=== PATIENT | male | born 1965 | race Caucasian/White ===

== ENCOUNTER 2022-08-06 15:47 | Emergency (ER) | payer BC, SELFPAY ==
--- NOTE | 2022-08-06 15:49 | ED.GENADULT ---
HPI - General Adult General Chief complaint: Allergic Reaction Stated complaint: Tongue Numbness,Bilateral Tingling Arms Time Seen by Provider: 08/06/22 15:49 Source: patient, RN notes reviewed and old records reviewed Mode of arrival: ambulatory Limitations: no limitations History of Present Illness HPI narrative: 57-year-old male presents to the [facility] with complaints of a black spot on his tongue after eating a pretzel. States that is tongue started tingling and so did it arms. Has full range of motion. No swelling noted. No treatment prior to arrival. Patient states it occurred about 30 minutes prior to arrival Onset (ago): minute(s) (30-60) Related Data Home Medications Medication Instructions Recorded Confirmed chlorthalidone 25 mg tablet 25 mg PO DAILY 08/06/22 08/06/22 potassium citrate 10 mEq (1,080 10 meq PO BID 08/06/22 08/06/22 mg) tablet,extended release rosuvastatin 40 mg tablet 40 mg PO DAILY 08/06/22 08/06/22 tamsulosin 0.4 mg capsule 0.4 mg PO DAILY 08/06/22 08/06/22 Allergies Allergy/AdvReac Type Severity Reaction Status Date / Time No Known Allergies Allergy Verified 08/06/22 16:00 Review of Systems Review of Systems: All systems reviewed & are unremarkable except as noted in HPI and below Constitutional: Constitutional: Reports no additional constitutional complaints Eyes: Eyes: Reports no additional eye complaints ENT: Reports as per HPI Cardiovascular: Cardiovascular: Reports no additional cardiovascular complaints, Denies chest pain and Denies dyspnea Respiratory: Respiratory: Reports no additional respiratory complaints, Denies chest congestion, Denies cough and Denies dyspnea Gastrointestinal: Gastrointestinal: Reports no additional gastrointestinal complaints, Denies abdominal pain, Denies nausea and Denies vomiting Musculoskeletal: Musculoskeletal: Reports no additional musculoskeletal complaints Integumentary/Breasts: Skin/Breast: Reports system reviewed and no additional complaints, except as docu Neurologic: Reports system reviewed and no additional complaints, except as documented Psychiatric: Psychiatric: Reports no additional psychiatric complaints Allergic/Immunologic: Allergic/Immunologic: Reports no additional allergic/immunologic complaints PMFSH Comments At the time of my signature, I reviewed and agree with the nursing past medical, surgical, social, and family history. There is no relevant family history pertinent to the patient complaint. Exam Const: General: cooperative, healthy appearing, comfortable, no acute distress, well developed, alert and well nourished Nutritional Appearance: well nourished Orientation/consciousness: patient oriented x3 Limitations: no limitations HENMT: Head: normal to inspection Ears: hearing grossly normal bilaterally and external ears normal Face/Nose/Sinus: Normal external nose present, Normal nares present, Normal nasal mucous membranes and turbinates present, normal facial exam and face symmetric Face and sinus: normal facial exam Mouth: Yes Normal oral and palatal mucosa present, Yes lip normal, Yes oropharynx normal, Yes moist mucous membranes, Yes lip abnormal (black FB ), No mouth trauma and No muffled voice Mouth/tongue images: 1. Small block foreign body imbedded in tongue. Removed with alligator forceps appeared to be an insect stinger Throat: posterior oropharynx normal, uvula midline and no uvular edema Eyes: General: appearance normal, both eyes and all related structures Alignment and Position: alignment normal Periorbital: periorbital findings normal Conjunctivae: conjunctivae normal Pupils: Equal, round and reactive pupils present EOM: EOMs intact bilaterally Neck: Neck: normal visual inspection, full ROM, no lymphadenopathy and no meningeal signs Chest: Chest palpation & inspection: normal inspection of the chest Resp: Effort & Inspection: normal respiratory effort and able to speak in compl
[2022-08-06 15:53] VITALS: BP 138/71; PULSE 92; RESP 18; TEMP 36.6; O2SAT 100
--- NOTE | 2022-08-06 16:06 | PC.NURSE ---
TRAVELING SALES REPRESENTATIVE WAS ABLE TO REMOVE THE SPOT ON THE TONGUE WITH ALLIGATOR FORCEPS, APPEARS TO BE SOME SORT OF AN INSECT STINGER.
== END 2022-08-06 16:10 | disposition home or self-care (01) ==
PROVIDERS: Emergency Provider Nurse Practitioner; PCP Internal Medicine
DX: T63.481A Toxic effect of venom of other arthropod, accidental (unintentional), initial encounter (principal); E78.00 Pure hypercholesterolemia, unspecified; N40.0 Benign prostatic hyperplasia without lower urinary tract symptoms
CPT/HCPCS: 99213; G0463

== ENCOUNTER 2024-09-01 10:46 | Outpatient (CLI) | payer BC, SELFPAY ==
--- NOTE | ~2024-09-01 | MR_ITS ---
MRI of the right shoulder Technique: Axial proton-density fat-sat images, coronal proton density fat-sat and T2 fat-sat images, and sagittal T1-weighted and T2 fat-sat images were acquired. Clinical History: Tendon strain Findings: There is moderate AC joint degenerative change, with bony productive change in both sides o f the joint. Cortical clavicular, coracoacromial, and coracohumeral ligaments are probably intact. Supraspinatus and infraspinatus tendons are intact, with mild to moderate tendinosis but no tear. Sub scapularis tendon intact with moderate tendinosis. Tendon of long head of the biceps is intact. No definite labral tear seen. Inferior glenohumeral ligament is intact. No effusion or degenerative change of the glenohumeral join t. There is mild fluid distention of the subacromial/subdeltoid bursa. No muscle atrophy or edema. Impression: Mild subacromial/subdeltoid bursitis. Rotator cuff tendinosis without partial or full-thickness tear. Moderate AC joint degenerative change. Reviewed, dictated and finalized at location . Impression: Mild subacromial/subdeltoid bursitis. Rotator cuff tendinosis without partial or full-thickness tear. Moderate AC joint degenerative change.
--- OUTSIDE RECORDS SUMMARY | 2024-09-01 10:52 | XMS_ITS | CONTINUITY OF CARE DOCUMENT ---
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 Name Role Phone Tiffanie MALONE, Hola Unavailable [phone] JONATHAN FAJARDO Unavailable JONATHAN FAJARDO Unavailable PROBLEMS Condition Status Date Provider Notes Syncope active Hola Moreno MD Hyperlipidemia active Hola Moreno MD Kidney stones active Hola Moreno MD CAD (coronary artery disease) active Hola Moreno MD ENCOUNTERS Date Type Provider Location Encounter Diag nosis - In-person encounter Office Visit Hola Moreno MD [facility] CAD (coronary artery disease) - In-person encounter Office Visit Hola Moreno MD [facility] - In-person encounter Office Visit Hola Moreno MD [facility] SyncopeHyperlipidemiaKidney stones VITAL SIGNS Date Observation Value Provider Body Mass Index (Ratio) 24.07 kg/m2 Nick Moreno MD blood pressure, diastolic 84 mm[Hg] Balbina Galo blood pressure, systolic 133 mm[Hg] Lori Galo oxygen saturation, oximetry 97 % Kenna Galo pulse rate 70 /min Kenna Galo respiratory rate E&M 12 /[facility] 163 [lb_av] [facility] height E&M 69 [in_i] [facility] blood pressure, cuff size regular Balbina trinh Hitchcock Body Mass Index (Ratio) 24.66 kg/m2 Nick Moreno MD blood pressure, diastolic 84 mm[Hg] [facility] blood pressure, systolic 129 mm[Hg] [facility] oxygen saturation, oximetry 97 % [facility] pulse rate 64 /min [facility] respiratory rate E&M 12 /min [facility] weight E&M 167 [lb_av] [facility] height E&M 69 [in_i] [facility] blood pressure, cuff size regular [facility] Body Mass Index (Ratio) 25.25 kg/m2 Nick Moreno MD blood pressure, diastolic 98 mm[Hg] Caitlyn kimberlyn [facility] blood pressure, systolic 140 mm[Hg] [facility] oxygen saturation, oximetry 98 % [facility] rate E&M 16 /min [facility] pulse rate 72 /min [facility] blood pressure, cuff size regular Vi kimberlyn [facility] weight E&M 171 [lb_av] [facility] height E&M 69 [in_i] [facility] ALLERGIES No Known Drug Allergies RESULTS Date Observation Value Provider Reference Range Interpretation Location 7 prothrombin time (patient) 10.7 s [facility] 9.1-12.0 7 international normalized ratio (INR) 1.0 [facility] 0.9-1.2 7 lipoprotein, beta, serum, point, quantitative, calculated 81 mg/dL [facility] 0-99 7 HDL cholesterol, serum 74 mg/dL [facility] >39 7 triglyceride, serum, random 71 mg/dL [facility] 0-149 7 cholesterol, serum 169 mg/dL [facility] [phone]/03/2 7 calcium, serum 10.3 mg/dL [facility] 8.6-10.2 High 7 carbon dioxide, venous blood 25 mmol/L [facility] 20-29 7 chloride, serum 105 mmol/L [facility] 96-106 7 potassium, serum 4.8 mmol/L [facility] 3.5-5.2 7 sodium, serum 144 mmol/L [facility] [phone]/03/2 7 urea nitrogen/creatinin e ratio, serum 10 [facility] 10-24 7 creatinine, serum 0.71 mg/dL [facility] 0.76-1.27 Low 7 urea nitrogen, blood 7 mg/dL [facility] 8-27 Low 7 blood glucose, random 96 mg/dL [facility] 70-99 6 basophil count, absolute 0.1 x10E3/uL [facility] 0.0-0.2 6 Eosinophil Absolute Count 0.1 X10E3/UL [facility] 0.0-0.4 6 monocyte count, blood, automated 0.4 X10E3/UL [facility] 0.1-0.9 6 lymphocyte count, blood, automated 1.6 X10E3/UL [facility] 0.7-3.1 6 Absolute Neutrophils 3.1 X10E3/UL [facility] 1.4-7.0 6 basophils as percent of blood leukocytes 1 % [facility] Not Estab. 6 eosinophils as percent of blood leukocytes 1 % [facility] Not Estab. 6 monocytes as percent of blood leukocytes 8 % [facility] Not Estab. 6 lymphocytes as percent of blood leukocytes 31 % [facility] Not Estab. 6 neutrophils as percent of blood leukocytes 59 % [facility] Not Estab. 6 platelet count 214 X10E3/UL [facility] [phone]/03/2 6 red blood cell distribution width 11.8 % [facility] 11.6-15.4 6 mean corpuscular hemoglobin concentration, RBC 32.5 G/DL [facility] 31.5-35.7 mean corpuscular hemoglobin, RBC 31.1 pg [facility] 26.6-33.0 mean corpuscular volume, RBC 96 fL [facility] 79-97 hematocrit, blood 46.5 % [facility] 37.5-51.0 hemoglobin, blood 15.1 g/dL [facility] 13.0-17.7 erythrocyte (RBC) count 4.86 X10E6/UL [facility] 4.14-5.80 leukocyte count, blood 5.2 X10E3/UL [facility] 3.4-10.8 HISTORY OF MEDICATION USE Medication Status Instructions Dates Provider Indications Com ments ezetimibe 10 mg tablet active Kenna Galo aspirin 81 mg tablet,delayed release (DR/EC) active Take 1 tablet by mouth once a day 4 Coreen Cordova [facility] rosuvastatin 40 mg tablet active Kuldeep Paniagua tamsulosin 0.4 mg capsule active Kuldeep Paniagua SOCIAL HISTORY Date Observation Value Provider personal history of marijuana use no Hola Moreno MD drug use no Hola Hunt alcohol use no Hola Hunt smoking status Never smoker Hola Moreno MD personal history of marijuana use no Coreen SABILLON drug use no Coreen DRISCOLLP alcohol use no Coreen DRISCOLLP smoking status Never smoker Coreen argueta [facility] Surgical History of - Tonsillectomy Surgical History of - Tonsillectomy Hola Moreno MD appendectomy, history of Appendectomy, Hx of Hola Moreno MD INSURANCE PROVIDERS Payer name Policy type / Coverage type [place] [employer] party ID [facility] [id number] ADVANCE DIRECTIVES Name Date DISCUSSED - NO DECISION MADE TREATMENT PLAN Date Name Performer Cardiology:08/15/24 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 Medical therapy. No recurrance of syncope or dizziness. 06/13/24 P atient had episode of syncope in March of last year and was hospitalized h ad recurrent episode of near syncope last week H ad echo that showed EF of 49% with inferior and lateral wall hypokinesis A bnormal nuclears stress test 1 0 beats NSVT on tele monitor W ill plan for LHC to r/o ischemia H is updated medication list for this problem includes: Aspirin 81 Mg Tablet,delayed Release (/ec) (Aspirin) ..... Take 1 tablet by mouth once a day Hola Moreno MD Cardiology Hola Moreno MD Cardiology: H is updated medication list for this problem includes: Rosuvastatin 40 Mg Tablet (Rosuvastatin) Hola Moreno MD Cardiology:Found by cath. Stable disease. Continue current meds and increase exercise. Hola Moreno MD Cardiology Coreen Coynemigl ia [facility] Cardiology: H is updated medication list for this problem includes: Rosuvastatin 40 Mg Tablet (Rosuvastatin) Coreen Coynemiglia [facility] Cardiology:Patient h ad episode of syncope in March of last year and was hospitalized h ad recurrent episode of near syncope last week H ad echo that showed EF of 49% with inferior and lateral wall hypokinesis A bnormal nuclears stress test 1 0 beats NSVT on tele monitor W ill plan for LHC to r/o ischemia H is updated medication list for this problem includes: Aspirin 81 Mg Tablet,delayed Release (/ec) (Aspirin) ..... Take 1 tablet by mouth once a day Coreen SABILLON Cardiology Hola Moreno MD Cardiology Hola Moreno MD Cardiology:30 day monitor Hola Moreno MD Date Name PROTHROMBIN TIME WIT H INR LIPID PANEL CBC (INCLUDES DIFF/P LT) BASIC METABOLIC PANE L W/EGFR Stress Exercise Card iolite Monitor - Telemetry (Mobile Cardiac)
--- OUTSIDE RECORDS SUMMARY | 2024-09-01 10:52 | XMS_ITS | Clinical Summary ---
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 Gender Identity Not on file Sexual Orientation Not on file Plan of Treatment Health Maintenance Due Date Last Done Comments Hepatitis C Virus (HCV) Screening 1965 TdaP Immunization 1964 Hepatitis B Immunization (1 of 3 - 19+ 3-dose series) 1983 Colonoscopy 2009 Colorectal Cancer Screening 2009 Cologuard 2014 Immunochemical Fecal Occult Blood 2014 Pneumococcal Immunization (5 0+ years) (1 of 1 - PCV) 2014 Zoster Immunization (1 of 2) 2014 PSA Discussion 2019 Influenza Immunization (#1) 12/12/202301/10, 01/30/2017 SARS-COV-2 Immunization ( season) 2023 Respiratory Syncytial Virus (RSV) Immunization (Adult) (1 - 1-dose 75+ series) 2039 Meningococcal Immunization (ACWY) Aged Out No longer eligible b ased on patient's age to complete this topic Pneumococcal Immunization Combined Aged Out No longer eligible b ased on patient's age to complete this topic Rotavirus Immunization Aged Out No lo nger eligible based on patient's age to complete this topic
--- OUTSIDE RECORDS SUMMARY | 2024-09-01 10:52 | XMS_ITS | Clinical Summary ---
Author Organization [facility] Address [facility] [place] [address] Care Team Providers Care Anglesmith Name Role Phone Xiomara Powell MD Primary Care Provider Terence Lagunas MD Unavailable [phone] Allergies No known active allergies Medications chlorthalidone (HYGROTON) 25 mg tabletIndications:Histo ry of kidney stones Take 1 tablet (25 mg total) by mouth daily Active multivitamin tablet 1 tablet daily 09/22/19 07 Active aspirin 81 mg enteric coated tablet Take 1 tablet (81 mg total) by mouth daily 04/28/19 17 Active DOCOSAHEXAENOIC ACID ORAL Take 1 capsule by mouth daily Active azelastine 205.5 mcg (0.15 %) spray,non-aerosolIndica tions:Chronic rhinitis Administer 0.3 mL (2 sprays total) into affected nostril(s) 2 (two) times a day Active niacin 500 mg tablet Take 1 tablet (500 mg total) by mouth daily 04/28/19 17 Active calcium polycarbophil (FIBER-CAPS, CA POLYCARBOPHIL, ORAL) Take 1 capsule by mouth daily Active glucosamine HCl 1,500 mg tablet Take 1 capsule by mouth 2 (two) times a day 04/28/19 17 Active ginkgo biloba leaf extract 30 mg capsule Take 3 capsules by mouth daily 04/28/19 17 Active potassium citrate ER (UROCIT-K) 10 mEq (1,080 mg) CR tabletIndications:Histo ry of kidney stones Take 1 tablet (10 mEq total) by mouth daily Active desonide (DESOWEN) 0.05 % lotionIndications:Sebor rheic dermatitis APPLY TO RASH AREA ON FACE TWICE A DAY NEEDED 06/25/19 21 Active tamsulosin (FLOMAX) 0.4 mg extended release capsuleIndications:Luther gn prostatic hyperplasia with nocturia Take 1 capsule (0.4 mg total) by mouth daily 12/03/19 24 Active omega-3 fatty acids-fish oil 300-1,000 mg capsule Take 2 capsules (2 g total) by mouth daily Active cholecalciferol 400 unit capsule Take 1 tablet/capsul e (400 Units total) by mouth daily Active collagen, hydrolysate, bovine, (collagen, hydr, bovine,, bulk,) 100 % powder 10 granules daily 10 grams Active UNABLE TO FIND Take 1 each by mouth daily Med Name: Total Beets Active rosuvastatin (CRESTOR) 40 mg tabletIndications:Pure hypercholesterolemia Take 1 tablet (40 mg total) by mouth daily 100 tablet 3 12/08/19 24 Active Active Problems Problem Noted Date Diagnosed Date Pure hypercholesterolemia 12/08/2023 Assessment & Plan (12/08/2023 5:39 PM CDT): Chronic. Tolerates rosuvastatin 40 mg daily. Has been off medication for about a week or 2. His last LDL was over 70 on the 40 mg dose. Given this he likely does need to stay on it. Medication refilled. Encouraged healthy lifestyle Chronic rhinitis 12/08/2023 Assessment & Plan (12/08/2023 5:39 PM CDT): Chronic. Astelin helps but has issues with dry nose and nosebleed. Discussed potential attempts to trial [id number] antihistamine. Also consider using saline nasal spray and sinus rinses like a Neti pot. See how that does. If struggles we can always put him back on nasal sprays with antihistamine and nasal steroids Benign prostatic hyperplasia with nocturia 12/07 Assessment & Plan (12/08/2023 5:39 PM CDT): Chronic. On Flomax with benefit. Continue. Sees urology Greater trochanteric pain sy ndrome of both lower extremities 12/08/2023 Acute pain of right knee 12/08/2023 Chondromalacia patellae of right knee 12/08/2023 Seborrheic dermatitis 12/08/2023 History of kidney stones 04/13/2008 Assessment & Plan (12/08/2023 5:38 PM CDT): Chronic. Follows with Urology. Reports chlorthalidone for the kidney stones and not for diagnosis hypertension. Continue your crit as well. Resolved Problems Problem Noted Date Diagnosed Date Resolved Date Cervical radiculopathy 10/09/202212/07 Essential hypertension 06/25/202212/07 Incisional hernia with obstruction 05/15/2020 12/08/2023 Mixed hyperlipidemia 04/28/2016 024 Epididymitis 07/09/2011 12/08/2023 Erectile dysfunction 03/26/2011 024 Abdominal hernia 01/23/2010 12/08/2023 Immunizations Immunization Administration Dates Next Due Influenza, Quadrivalent, Spl it, Intramuscular 01/19/2018,01/30/2017 Influenza, Quadrivalent, Spl it, Preservative Free, Intramuscular 01/17/2023,02/06/2022,01/31/2020 Influenza, Trivalent, IM (MDV) 02/06/2022 Pfizer SARS-CoV-2 Monovalent Vaccination (12+ Yrs) PURPLE 02/06/2022 ZOSTER Recombinant 09/18/2022,07/13/2022 Surgical History Surgery Date Site/Laterality Comments DC APPENDECTOMY Appendectomy - 03/2005 (Added by TW Conv) DC UNLISTED PROCEDURE ABDOME N PERITONEUM & OMENTUM Hernia Repair - 08/2007 & 03/2007 (Added by TW Conv). x 4 HERNIA REPAIR x 4 TONSILLECTOMY AND ADENOIDECTOMY URETERAL REIMPLANTION had ureteral reimplanted and made larger SKIN SURGERY scalp for cyndi adn then skin transplant to cover bald spot Medical History Medical History Date Comments Personal history of other me ntal and behavioral disorders History of depression - (Add ed by TW Conv) Induration penis plastica Peyron ie's disease - (Added by TW Conv) High cholesterol History of hype rcholesterolemia - (Added by TW Conv) Kidney stone Chronic rhinitis Seborrheic dermatitis Incisional hernia with obstruction 05/15/2020 Family History * Patient is adopted Medical History Relation Name Comments No Known Problems Brother No Known Problems Sister No Known Problems Son Relation Name Status Comments Brother Alive Father Maternal Grandfather Maternal Grandmother Mother Paternal Grandfather Paternal Grandmother Sister Alive Son Alive Social History Tobacco Use Types Packs/Day Years Used Date Smoking Tobacco: Never Smokeless Tobacco: Never Tobacco Cessation:Counseling Given: No AUDIT-C Answer Date Recorded Q1: How often do you have a drink containing alc ohol? Monthly or less 12/08/2023 Q2: How many drinks containi ng alcohol do you have on a typical day when you are drinking? 3 or 4 12/08/2023 Q3: How often do you have si x or more drinks on one occasion? 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 Gender Identity Not on file Sexual Orientation Not on file Obstetrics History Last Filed Vital Signs Vital Sign Reading Time Taken Comments Blood Pressure 109/75 12/08/2023 1:37 PM CDT Pulse 91 12/08/2023 1:37 PM CDT Temperature 36.6 C (97.8 F) 12/08/2023 1:37 PM CDT Respiratory Rate 16 12/08/2023 1:37 PM CDT Oxygen Saturation 98% 12/08/2023 1:37 PM CDT Inhaled Oxygen Concentration - - Weight 68.8 kg (151 lb 11.2 oz) 12/08/2023 1:37 PM CDT Height 174 cm (5' 8.5 ) 12/08/2023 1:37 PM CDT Body Mass Index 22.73 12/08/2023 1:37 PM CDT Plan of Treatment Health Maintenance Due Date Last Done Comments Hepatitis C Screening 1965 DTaP/Tdap/Td Vaccine (1 - Tdap) 1975 Hepatitis B Screening 1982 Covid-19 Vaccine ( season) 2023 02/06/2022, 02/06/2022, 07/15/2020, Additional history exists Regular Well Visit/Exam 18-64 04/21/2024 04/21/2023 Prostate Cancer Screening-PSA 06/26/2024 06/26/2022 Depression Screening 12/07/2024 12/08/2023, 12/08/19 24 Influenza Vaccine (Season Ended) 2024 01/17/2023, 02/06/2022, 02/06/2022, Additional history exists Colon Cancer Screening-Colonoscopy 12/08/2033 12/09/2023 Zoster Vaccine Completed 09/18/2022, 07/13/2022 Pneumococcal vaccine <65 Aged Out No longer eligible based on patient's age to complete this topic Procedures Procedure Name Priority Date/Time Associated Diagnosis Comments COLONOSCOPY Routine 12/09/2023 10:17 AM CDT from Last 3 Months or Most Recently Relevant to Health Maintenance Results * COLONOSCOPY (12/09/2023 10:17 AM CDT) Scribed Colonoscopy Abnormal us Historical Provider HEALTH MAINTENANCE Final Result from Last 3 Months or Most Recently Relevant to Health Maintenance Insurance [facility] Care Teams Anglesmith Relationship Specialty Start Date End Date Xiomara Powell MD PCP - General Family Medicine 12/08/23 Terence Lagunas MD [address] [facility] [place] [address] Consulting Physician Urology 12/08/23
--- OUTSIDE RECORDS SUMMARY | 2024-09-01 10:52 | XMS_ITS | Clinical Summary ---
Author Organization [email or web address] Address [address] [place] [address] Care Team Providers Care Support Representative Name Role Phone Markell Ibarra MD Primary Care Provider [phone] Source Comments [facility],non-owned Affiliates and Associated Physician Practices is amultiple site organization consisting of ambulatory clinics and hospital sitesin [place], [place], [place] and [place]. This disclosure is being madepursuant to the Care Everywhere program and may not contain all information available regarding this patient. Last updated 17.[facility] Allergies No known active allergies Medications * Be aware that medications may not be up to date on this document. Alwaysverify current medications with the patient. rosuvastatin (Crestor) 40 MG tablet Take 1 (one) tablet by mouth once daily Active tamsulosin (Flomax) 0.4 MG capsule Take 1 (one) capsule by mouth once daily At the same time every day after a meal. Active GINKGO BILOBA EXTRACT PO Take 120 mg by mouth once daily Active Multiple Vitamin (MULTIVITAMIN ADULT PO) Take 1 tablet by mouth once daily Active fish oil/omega-3 fatty acids (Promega;Cardi-O korey 3) 1000 MG capsule Take 2 (two) capsules by mouth once daily Active Glucosamine-Vit D-Hyaluron Acd (Libertad Glucosamine Plus Vit D3) 5203-1832-1.65 MG-UNIT-MG TABS Take 2 tablets by mouth once daily Active vitamin D3 (Cholecalciferol ) 10 MCG (400 UNIT) capsule Take 1 (one) capsule by mouth once daily Active niacin (Niacor) 500 MG tablet Take 1 (one) tablet by mouth once daily Active inulin 2 g chew Take 2 (two) tablets by mouth once daily Active Active Problems Problem Noted Date Diagnosed Date Abnormal echocardiogram 04/18/2024 Overview (04/18/2024): TTE 03/2024 obtained for syncope work up with WMA but no stigmata of CHF Atrial fibrillation 04/09/2024 History of nephrolithiasis 04/09/2024 Syncope and collapse 04/08/2024 Hypokalemia 04/08/2024 Fall, initial encounter 04/08/2024 Laceration of scalp without foreign body, initia l encounter 04/08/2024 Mixed hyperlipidemia 04/08/2024 Benign prostatic hyperplasia without lower urinary tract symptoms 04/08/2024 Immunizations Immunization Administration Dates Next Due TDAP (7yrs+) 04/08/2024 Social History Tobacco Use Types Packs/Day Years Used Date Smoking Tobacco: Never Smokeless Tobacco: Never Tobacco Cessation:Counseling Given: Not Answered Alcohol Use Standard Drinks/Week Comments Yes 0 (1 standard drink = 0.6 oz pur e alcohol) occasionally Sex and Gender Information Value Date Recorded Sex Assigned at Not on file Legal Sex Male 6:34 AM [facility] Gender Identity Not on file Sexual Orientation Not on file Last Filed Vital Signs Vital Sign Reading Time Taken Comments Blood Pressure 126/88 04/18/2024 10:40 AM [facility] Pulse 76 04/18/2024 10:40 AM [facility] Temperature 36.6 C (97.8 F) 04/18/2024 10:40 AM [facility] Respiratory Rate 18 04/18/2024 10:40 AM [facility] Oxygen Saturation 96% 04/18/2024 10:40 AM [facility] Inhaled Oxygen Concentration - - Weight 77 kg (169 lb 11.2 oz) 04/18/2024 10:40 A M [facility] Height 175.3 cm (5' 9 ) 04/18/2024 10:40 AM [facility] Body Mass Index 25.06 04/18/2024 10:40 AM [facility] Plan of Treatment Health Maintenance Due Date Last Done Comments COLOGUARD (AGES 45-75) - COLON CA SCREENING 1964 COLON MONITORING 1964 COLONOSCOPY - COLON CA SCREENING 1964 CT COLONOGRAPHY - COLON CA SCREENING 1964 Colorectal Cancer Screening 1964 FIT - COLON CA SCREENING 1964 FLEX SIG - COLON CA SCREENING 1964 HIV SCREENING 1979 HEPATITIS C SCREENING 05/09/1982 PNEUMOCOCCAL VACCINE 50+ (1 of 2 - PCV) 1983 ZOSTER VACCINE (1 of 2) 2014 DEPRESSION SCREENING 04/12/2024 Respiratory Syncytial Virus (RSV) Vaccine Pt: or over 60 yrs (1 - Risk 60-74 years 1-dose series) 2024 SCREENING FOR DIABETES 04/10/2027 , 04/09/2024, 04/08/2024 DTAP/TDAP/TD VACCINES (2 - Td or Tdap) 04/08/2034 04/08/2024 COVID-19 VACCINE Completed 01/02/2024, , 02/06/2022, Additional history exists INFLUENZA VACCINE Completed 01/02/2024, , 02/06/2022, Additional history exists HEPATITIS B VACCINE Aged Out No longe r eligible based on patient's age to complete this topic HIB VACCINE Aged Out No longer eligi ble based on patient's age to complete this topic HPV VACCINE Aged Out No longer eligi ble based on patient's age to complete this topic MENINGOCOCCAL (Group B) VACCINE SHARED DECISION-MAKING Aged Out No longer eligible based on patient's age to complete this topic MENINGOCOCCAL GROUPS A/C/Y/W VACCINE Aged Out No longer eligible based on patient's age to complete this topic Procedures Procedure Name Priority Date/Time Associated Diagnosis Comments BASIC METABOLIC PANEL (CALCIUM TOTAL) AM Draw 04/10/2024 2:54 AM [facility] Syncope and collapse Hypokalemia from Last 3 Months or Most Recently Relevant to Health Maintenance Results * (ABNORMAL) BASIC METABOLIC PANEL (CALCIUM TOTAL) (04/10/2024 2:54 AM [facility]) BUN 14 7 - 26 mg/dL 04/10/2024 4:44 AM [facility] Creatinine 0.67(L) 0.71 - 1.16 mg/dL 04/10/2024 4:44 AM [facility] Sodium 133(L) 136 - 145 mmol/L 04/10/2024 4:44 AM [facility] Potassium 3.9 3.5 - 4.5 mmol/L 04/10/2024 4:44 AM [facility] Chloride 101 98 - 107 mmol/L 04/10/2024 4:44 AM [facility] CO2 26 22 - 29 mmol/L 04/10/2024 4:44 AM [facility] Glucose 101(H) 70 - 99 mg/dL 04/10/2024 4:44 AM [facility] Calcium 9.4 8.4 - 10.2 mg/dL 04/10/2024 4:44 AM [facility] Anion Gap 6 6 - 16 04/10/2024 4:44 AM [facility] BUN/Creatinine Ratio 21 7 - 23 04/10/2024 4:44 AM [facility] Osmolality Calculated 277 275 - 295 mOsm/kg 04/10/2024 4:44 AM [facility] eGFR by CKD-EPI >90 >=90 mL/min/1.7 3 m2 04/10/2024 4:44 AM [facility] Blood BLOOD SPECIMEN / Unknown Lab Venipuncture / Unknown 04/10/2024 2:54 AM [facility] 04/10/2024 4:13 AM [facility] Anali Owens MD LAB - CHEMISTRY ORDERABLES nal Result [facility] [address] [place] [address], [facility] [phone] from Last 3 Months or Most Recently Relevant to Health Maintenance Insurance ANTH Advance Directives * Full Code (Latest Code Status on File) Date Activated Date Inactivated Comments 04/08/2024 3:06 PM 04/10/2024 7:14 PM Care Teams Support Representative Relationship Specialty Start Date End Date Markell Ibarra MD [address] [place] [address] PCP - General 09/07/08
--- OUTSIDE RECORDS SUMMARY | 2024-09-01 10:52 | XMS_ITS | Referral Summary ---
Author Organization [facility] Address [address] [address] [place] [address] Care Team Providers Care Traffic Signal Mechanic Name Role Phone Xiomara Powell MD Primary Care Provider Terence Lagunas MD Unavailable [phone] Allergies No known active allergies Medications [...] and nosebleed. Discussed potential attempts to trial [id number] antihistamine. Also consider using saline nasal spray [...] (12+ Yrs) PURPLE 02/06/2022 ZOSTER Recombinant 09/18/2022,07/13/2022 Social History Tobacco Use Types Packs/Day Years [...] on file Legal Sex Male 7:53 PM [employer] Gender Identity Not on file Sexual Orientation [...] 12/08/2023 1:37 PM CDT Plan of Treatment Not on file Procedures Procedure Name Priority Date/Time Associated Diagnosis Comments COLONOSCOPY Routine 12/09/2023 10:17 AM CDT from Last 3 Months or Most Recently Relevant to Health Maintenance Results * COLONOSCOPY (12/09/2023 10:17 AM CDT) Scribed Colonoscopy Abnormal Historical Provider HEALTH MAINTENANCE Final Result from Last 3 Months or Most Recently Relevant to Health Maintenance Insurance [facility] Care Teams Traffic Signal Mechanic Relationship Specialty Start Date End Date Xiomara Powell MD PCP - General Family Medicine 12/08/23 Terence Lagunas MD [address] [facility] [address] [place] [address] Consulting Physician Urology 12/08/23
--- OUTSIDE RECORDS SUMMARY | 2024-09-01 10:52 | XMS_ITS | Data Portability ---
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 At his last appointment we sent him to physical therapy in order meloxicam. He presents today stating that the shoulder feels much better. He has now finished with PT and still takes meloxicam p.r.n.. He works on the PT exercises at home. Physical exam: No pain with palpitation. Normal scapular movement. No pain with shoulder range of motion. Range of motion fully intact. Sensation intact throughout. We recommend that he continue doing the physical therapy exercises at home to keep the shoulder mobile. He can continue to take meloxicam as needed. We will put in a refill for him today as he is almost out. We can see him back as needed if the pain returns or new issues arise. He is in agreement with this plan. [email or web address] Not available 03/24/2023 09:18:21 04/21/2023 04/21/2023 Immunizations discussed Healthy lifestyle choices discussed Exercise discussed Blood work ordered Continue current therapy Follow-up 6 months [email or web address] Not available 04/21/2023 21:16:00 Plan of Treatment Reminders Order Date Submit Date Provider Last Modified By Organization Details Last Modified Time Details Appointments Follow Up 15 2024 08:00A Monique Moss MD Not available Not available Not available Lab PSA, serum or plasma [address] (Lab), [address] [place], [address], 05/01/2024 09:59:25 lipid panel, serum 2024 025 [facility] (Lab), [address] [place], [address], 05/12/2024 06:50:30 CMP, serum or plasma 2024 025 [facility] (Lab), [address] [place], [address], 05/12/2024 06:50:31 CK (creatine kinase), total, serum [address] (Lab), [address] [place], [address], 05/01/2024 09:59:25 CMP, serum or plasma 2023 024 [facility] Not available 05/17/2023 11:34:05 lipid panel, serum 2023 024 [facility] Not available 05/17/2023 11:34:04 CBC w/ auto diff 2023 024 [place] Not available 05/17/2023 11:34:05 Referral cardiolog ist referral - Please call patient to schedule an appointme nt. Thank you. 2024 025 [facility] Ref[facility], [address], [place], [address], 04/25/2024 14:34:42 Procedures None recorded. Surgeries None recorded. Imaging MRI, shoulder, w/o contrast - Please call patient to schedule. 2024 025 [facility] ([facility]), [address] [place], [address], 08/30/2024 10:30:38 Medication Orders ezetimibe 10 mg tablet 2024 025 [facility], [address] [place], [id number], 06/22/2024 09:54:41 Patient TargetsNo targets recorded. Patient InstructionsNo instructions recorded. 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 Thank you. Referring Physician: Lyndon Perez, Family Medicine, Encounter Date: 04/24/2024 Results Created Date Observation Date Name Description Value Unit Range Abnormal Flag Note LastModifiedBy Organization Detail LastModifiedTime 05/11/1905/12/2024 LIPID PANEL , STAND LADARIUS cholesterol, total 190 mg/dL <200 normal Not Available [address], [address], 05/12/2024 06:50:30 05/11/19 25 05/12/2024 LIPID PANEL , [place] HDL cholesterol 70 mg/dL > or = 40 normal Not Available [address], [address], 05/12/2024 06:50:30 05/11/19 25 05/12/2024 LIPID PANEL , ST[place] triglyceride s 85 mg/dL <150 normal Not Available [address], [address], 05/12/2024 06:50:30 05/11/1905/12/2024 LIPID PANEL , [place] LDL-choleste rol 102 mg/dL _(samantha c) high Refer ence range : <100 Odalys able range <100 mg/dL for prima ry preve ntion ; <70 mg/dL for patie nts with CHD or diabe tic patie nts with > or = 2 CHD risk facto rs. LDL-C is now calcu lated using the Vesna n-Hop kins fam givens, which is a valid ated novel metho anil mannte r accur acy than the Fried taina equat ion in the estim ation of LDL-C . Vesna n SS et al. JEWEL. 2013; 310(1 9): 2061- 2068 (http ://ed ucati on.Qu damionKristy tracyMixercast. Process and Plant Sales/f aq/FA Q164) Not Available [address], [address], 05/12/2024 06:50:30 05/11/1905/12/2024 LIPID PANEL , ST[place] L[place]AR[place] chol/HDLC ratio 2.7 (calc ) <5.0 normal Not Available [address], [address], 05/12/2024 06:50:30 05/11/1905/12/2024 LIPID PANEL , [place] non HDL cholesterol 120 mg/dL _(samantha c) <130 normal For patie nts with diabe yao plus 1 major ASCVD risk facto r, treat ing to a non-H DL-C goal of <100 mg/dL (LDL- C of <70 mg/dL ) is consi shadia franks n. Not Available [address] [address] [place], [address], 05/12/2024 06:50:30 05/11/1905/12/2024 COMPR EHENS JULY METAB OLIC PANEL glucose 89 mg/dL 65-99 normal Fasti ng refer ence inter mario Not Available [address] [address] [place], [address], 05/12/2024 06:50:31 05/11/1905/12/2024 COMPR EHENS JULY METAB OLIC PANEL urea nitrogen (BUN) 10 mg/dL 7-25 normal Not Available [address] [address] [place], [address], 05/12/2024 06:50:31 05/11/1905/12/2024 COMPR EHENS JULY METAB OLIC PANEL creatinine 0.74 mg/dL 0.70-1 .30 normal Not Available [address], [address], 05/12/2024 06:50:31 05/11/19 25 05/12/2024 COMPR EHENS JULY METAB OLIC PANEL eGFR 104 mL/mi n/1.7 3m2 > or = 60 normal Not Available [address], [address], 05/12/2024 06:50:31 05/11/1905/12/2024 COMPR EHENS JULY METAB OLIC PANEL BUN/creatini ne ratio SEE NOTE: (calc ) 6-22 Not Repor ayde: BUN and Creat inine are withi n refer ence range . Not Available [address], [address], 05/12/2024 06:50:31 05/11/19 25 05/12/2024 COMPR EHENS JULY METAB OLIC PANEL sodium 141 mmol/ L 135-14 6 normal Not Available [address], [address], 05/12/2024 06:50:31 05/11/19 25 05/12/2024 COMPR EHENS JULY METAB OLIC PANEL potassium 4.3 mmol/ L 3.5-5. 3 normal Not Available [address], [address], 05/12/2024 06:50:31 05/11/19 25 05/12/2024 COMPR EHENS JULY METAB OLIC PANEL chloride 106 mmol/ L 98-110 normal Not Available [address], [address], 05/12/2024 06:50:31 05/11/19 25 05/12/2024 COMPR EHENS JULY METAB OLIC PANEL carbon dioxide 29 mmol/ L 20-32 normal Not Available [address], [address], 05/12/2024 06:50:31 05/11/1905/12/2024 COMPR EHENS JULY METAB OLIC PANEL calcium 10.2 mg/dL 8.6-10 .3 normal Not Available [address], [address], 05/12/2024 06:50:31 05/11/19 25 05/12/2024 COMPR EHENS JULY METAB OLIC PANEL protein, total 6.9 g/dL 6.1-8. 1 normal Not Available [address], [address], 05/12/2024 06:50:31 05/11/19 25 05/12/2024 COMPR EHENS JULY METAB OLIC PANEL albumin 4.7 g/dL 3.6-5. 1 normal Not Available [address], [address], 05/12/2024 06:50:31 05/11/1905/12/2024 COMPR EHENS JULY METAB OLIC PANEL globulin 2.2 g/dL_ (calc ) 1.9-3. 7 normal Not Available [address], [address], 05/12/2024 06:50:31 05/11/19 25 05/12/2024 COMPR EHENS JULY METAB OLIC PANEL albumin/glob ulin ratio 2.1 (calc ) 1.0-2. 5 normal Not Available [address], [address], 05/12/2024 06:50:31 05/11/1905/12/2024 COMPR EHENS JULY METAB OLIC PANEL bilirubin, total 0.8 mg/dL 0.2-1. 2 normal Not Available [address], [address], 05/12/2024 06:50:31 05/11/19 25 05/12/2024 COMPR EHENS JULY METAB OLIC PANEL alkaline phosphatase 53 U/L 35-144 normal Not Available [facility] [address] [address] [place], [address], 05/12/2024 06:50:31 05/11/19 25 05/12/2024 COMPR EHENS JULY METAB OLIC PANEL AST 30 U/L 10-35 normal Not Available [address] [address] [place], [address], 05/12/2024 06:50:31 05/11/19 25 05/12/2024 COMPR EHENS JULY METAB OLIC PANEL ALT 39 U/L 9-46 normal Not Available [address], [address], 05/12/2024 06:50:31 05/11/19 25 05/12/2024 CREAT INE KINAS E, TOTAL creatine kinase, total 57 U/L 23-325 normal Not Available [address], [address], 05/12/2024 06:50:32 05/11/19 25 05/12/2024 PSA, TOTAL PSA, total 1.03 NG/mL < or = 4.00 normal The total PSA value from this assay syste m is stand ardiz ed again st the WHO stand ladarius. The test resul t will be appro ximat ryder 20% lower when jean red to the equim olar- stand ardiz ed total PSA (Dias man Coult er). Jean rison of seria l PSA resul ts shoul d be inter prete d with this fact in mind. This test was perfo rmed using the [employer] ns chemi lumin escen t metho d. Value s obtai christopher from diffe rent assay metho ds canno t be used inter shore eably . PSA level s, regar dless of value , shoul d not be inter prete d as absol alatna evide nce of the prese nce or absen ce of [facility] se. Not Available [employer] [facility] [address] [facility] [place], [address], 05/12/2024 06:50:33 Result Notes None recorded. Problems Name Problem SNOMED Code Status Onset Date Resolution Date Notes Provider Name and Address Organization Details Recorded Time Pain in lower limb 28829222 Active Not Available [facility] 3 07:19:20 Hyperchole sterolemia 78599318 Active Not Available [facility] 3 07:19:20 Anxiety state 972217126 Active Not Available [facility] 3 07:19:20 Pure hyperchole sterolemia 654040253 Active Not Available [facility] 3 07:19:20 Dizziness and giddiness 614413591 Active Not Available [facility] 3 07:19:20 Numbness of hand 834687043 Active Not Available [facility] 3 07:19:20 History of calculus of kidney 208613859 Active 2018 Not Available [facility] 3 07:19:20 Hyperlipid emia 37581846 Active 2021 Not Available [facility] 3 07:19:20 Hemorrhoid s 59447239 Active Not Available [facility] 3 07:19:20 Skin sensation disturbanc e 50028492 Active Not Available [facility] 3 07:19:20 Chronic rhinitis 24665805 Active Not Available [facility] 3 07:19:20 Urolithias is 70730783 Active 2019 Not Available [facility] 3 07:19:20 Essential hypertensi on 48293578 Active 2022 Not Available [facility] 3 07:19:20 Cervical radiculopa thy 46634279 Active 2022 Not Available [facility] 3 07:19:20 Pain in left arm 828133778 Active 2022 NATALIIA Feng null, [place] - [facility] [employer] [facility] 3 13:54:04 Paresthesi a of upper limb 71988323 Active 2022 NATALIIA Feng null, [facility] [employer] [facility] 3 13:56:54 Pain of left shoulder joint 8609261983033 9109 Active 2022 Lakia Franklin RN null, [facility] [employer] [facility] 3 11:52:04 Screening for malignant neoplasm of prostate Active 2024 JODIE Winchester [address], [address], [place], [address] , [facility] [employer] [facility] 5 10:13:16 Atrial fibrillati on 52539159 Active 2024 JODIE Winchester [address], [address], [place], [address] , [facility] [employer] [facility] 5 10:15:22 Adult health examinatio n Active 2024 JODIE Winchester [address], [address], [place], [address] , [facility] [employer] [facility] 5 10:22:35 Strain of tendon of right shoulder region Active 2024 JODIE Winchester [address], [address], [place], [address] , [facility] [employer] [facility] 5 10:36:45 Problem Notes None recorded. Procedures Surgical History Date Name Laterality Status Provider Name and Address Organization Details Recorded Time Appendectomy completed Yee Youngblood [facility] [employer] [facility] 02/09/2023 08:58:53 Hernia Repair completed Alena Mendosa RN [facility] [employer] [facility] 04/24/2024 10:05:17 Imaging Results None recorded. Procedure Notes None recorded. Medical Equipment None Reported. Allergies No known drug allergies Medications Name Sig Start Date Stop Date Status Note LastModified by Organization Details LastModified Time cyclobenz aprine 10 mg tablet active Not Available Not Available No t Available amoxicill in 500 mg capsule TAKE 1 CAPSULE BY MOUTH FOUR TIMES A DAY 10/07 completed Not Available Not Available Not Available fluconazo le 100 mg tablet 01/09 completed Not Available Not Available Not Available desonide 0.05 % topical cream APPLY A THIN LAYER TO THE AFFECTED AREA OF THE SKIN 2 TIMES A DAY active Not Available Not Available No t Available Ceftin 500 mg tablet Take 1 tablet every 12 hours by oral route for 7 days. 05/11 completed Not Available Not Available Not Available cetirizin e 10 mg tablet TAKE 1 TABLET BY MOUTH DAILY 04/30 completed Not Available Not Available Not Available ibuprofen 800 mg tablet 11/12 completed Not Available Not Available Not Available hydrocodo ne 5 mg-acetam inophen 325 mg tablet 11/12 completed Not Available Not Available Not Available meloxicam 15 mg tablet TAKE 1 TABLET BY MOUTH EVERY DAY 04/24 completed Not Available Not Available Not Available prednison e 20 mg tablet TAKE 2 TABLETS DAILY FOR 3 DAYS, THEN 1 TABLET DAILY FOR 3 DAYS. TAKE WITH FOOD 10/23 completed Not Available Not Available Not Available sulfaceta mide sodium-schuler lfur 10 %-5 % (w/w) topical cleanser 05/11 completed Not Available Not Available Not Available clobetaso l 0.05 % topical cream 03/08 completed Not Available Not Available Not Available Zithromax Z-Maninder 250 mg tablet Take 1 tablet by oral route as directed for 6 days. 03/06 completed Not Available Not Available Not Available chlorthal idone 25 mg tablet TAKE 1 TABLET BY MOUTH DAILY 04/24 completed syncope . low BP Not Available Not Available Not Available aspirin 81 mg tablet,de layed release TAKE 1 TABLET BY MOUTH ONCE A DAY active Not Available Not Available No t Available amoxicill in 500 mg tablet Take 1 tablet 3 times a day by oral route for 7 days. 03/06 completed Not Available Not Available Not Available methocarb erinn 750 mg tablet 04/28 completed Not Available Not Available Not Available cyanocoba kayce (vit B-12) 500 mcg tablet Take by oral route. 02/09 completed Not Available Not Available Not Available tamsulosi n 0.4 mg capsule TAKE ONE CAPSULE BY MOUTH DAILY active Not Available Not Available No t Available potassium citrate ER 10 mEq (1,080 mg) tablet,ex tended release TAKE 1 TABLET BY MOUTH DAILY 04/24 completed Not Available Not Available Not Available desonide 0.05 % lotion Apply a thin layer to the affected area of the skin 2 times a day 02/09 completed Not Available Not Available Not Available mupirocin 2 % topical ointment APPLY TO AFFECTED AREA 3 TIMES DAILY FOR 4 DAYS active Not Available Not Available No t Available Transderm -Scop 1 mg over 3 days transderm al patch 05/11 completed Not Available Not Available Not Available Anusol-HC 25 mg rectal supposito ry Insert 1 supposit ory twice a day by rectal route as directed for 10 days. 06/10 completed Not Available Not Available Not Available methylpre dnisolone 4 mg tablets in a dose pack TAKE 1 DOSE PACK BY MOUTH DIRECTED 02/09 completed Not Available Not Available Not Available ketoconaz ole 2 % topical cream 04/30 completed Not Available Not Available Not Available fluticaso ne propionat e 50 mcg/actua tion nasal spray,aleida pension 12/11 completed Not Available Not Available Not Available ipratropi um bromide 21 mcg (0.03 %) nasal spray 04/30 completed Not Available Not Available Not Available ezetimibe 10 mg tablet TAKE 1 TABLET BY MOUTH EVERY DAY. CONTINUE ROSUVAST ATIN active Not Available Not Available No t Available clobetaso l-emollie nt 0.05 % topical cream 01/09 completed Not Available Not Available Not Available rosuvasta tin 40 mg tablet TAKE 1 TABLET BY MOUTH DAILY active Not Available Not Available No t Available Cialis 5 mg tablet TAKE 1 TABLET BY MOUTH DAILY NEEDED 05/11 completed Not Available Not Available Not Available Cialis 20 mg tablet Take 1 tablet every day by oral route. 04/08 completed Not Available Not Available Not Available niacin 2015 active 500MG ONCE DAILY Not Available Not Available Not Available flaxseed oil 03/06 completed Not Available Not Available Not Available Glucosami ne 2015 active Not Available Not Available Not Avai lable ginkgo biloba 2015 active Not Available Not Available Not Avai lable fiber 2016 active CHEWABLE Not Available Not Available Not Avai lable Fish Oil 300 mg capsule Take by oral route. 03/08 completed Not Available Not Available Not Available azelastin e 205.5 mcg (0.15 %) nasal spray [place] 2 spray(s) every day by intranas al route. 04/08 completed Not Available Not Available Not Available Spectravi te Adult 2016 active Not Available Not Available Not Avai lable Vitals Date Recorded Body height Body mass index (BMI) Body weight Provider Name and Address Organization Details Last Updated DateTime 03/24/2023 175.26 cm 22 kg/m2 17938.26 g NATALIIA iLn [facility] [employer] [facility] 03/24/2023 08:55:55 Date Recorded Body height Body mass index (BMI) Body weight Body temperature Heart rate Systolic blood pressure Diastolic blood pressure Provider Name and Address Organization Details Last Updated DateTime 4 175.26 cm 23.8 kg/m2 12058.3 7 g 98.4 [degF] 62 /min 114 mm[Hg] 72 mm[Hg] Dulce Maria Stinson MA [facility] [employer] [facility] 4 15:40:32 Date Recorded Body height Body mass index (BMI) Body weight Body temperature Oxygen saturation Oxygen saturation in Arterial blood by Pulse oximetry Heart rate Systolic blood pressure Diastolic blood pressure Provider Name and Address Organization Details Last Updated DateTime 5 175.26 cm 24.8 kg/m2 80424.2 4 g 98.4 [degF] 98 % 98 % 79 /min 122 mm[Hg] 88 mm[Hg] Alena Mendosa RN [facility] [employer] [facility] 5 09:59:27 Date Recorded Body height Body mass index (BMI) Body weight Body temperature Oxygen saturation Oxygen saturation in Arterial blood by Pulse oximetry Heart rate Systolic blood pressure Diastolic blood pressure Provider Name and Address Organization Details Last Updated DateTime 5 175.26 cm 24.9 kg/m2 79540.6 7 g 97 [degF] 97 % 97 % 76 /min 120 mm[Hg] 80 mm[Hg] NATALIIA Lin [facility] [employer] [facility] 5 09:37:06 Date Recorded Body height Body mass index (BMI) Body weight Body temperature Heart rate Oxygen saturation Oxygen saturation in Arterial blood by Pulse oximetry Systolic blood pressure Diastolic blood pressure Provider Name and Address Organization Details Last Updated DateTime 5 175.26 cm 23.6 kg/m2 49725.7 8 g 97 [degF] 64 /min 98 % 98 % 128 mm[Hg] 74 mm[Hg] NATALIIA Warren [place] [facility] [place] [employer] [facility] 5 09:51:28 Social History Question Answer Notes LastModified by SOL ELIXIRS Details LastModified Time Tobacco Smoking Status Never Smoker Not Available [facility] 06/10/2022 14:44:39 Do You Have An Advance Directive? No [id number] Information not available 06/10/2022 What Is Your Level Of Caffeine Consumption? Moderate [id number] Information not available 06/10/2022 In The 14 Days Before Symptom Onset, Have You Had Close Contact With A Laboratory-confirm ed COVID-19 While That Case Was Ill? No [id number] Information not available 06/10/2022 In The 14 Days Before Symptom Onset, Have You Had Close Contact With A Person Who Is Under Investigation For COVID-19 While That Person Was Ill? No [id number] Information not available 06/10/2022 What Type Of Diet Are You Following? REGULAR [id number] Information not available 06/10/2022 Do You Have A Medical Power Of Diamond Sizer? No [id number] Information not available 06/10/2022 What Was The Date Of Your Most Recent Tobacco Screening? 04/21/2023 [email or web address] Information not available 04/21/2023 Have You Recently Traveled Abroad? No [id number] Information not available 06/10/2022 Sex: Unknown Functional Status Question Answer Note LastModified by SOL [employer] Details LastModified Time Do you use any illicit or recreational drugs? No [id number] Information not available 06/10/2022 What is your level of alcohol consumption? Occasional [id number] Information not available 06/10/2022 What is your exercise level? Moderate [id number] Information not available 06/10/2022 Mental Status None recorded. Family History Nothing Reported Notes:adopted Medical History Condition Response ARTHRITIS Y URINARY/BLADDER/KIDNEY PROBLEMS Y Immunizations Vaccine Type Date Status Note Provider Nam e and Address Organization Details Recorded Time Influenza, split virus, quadrivalent, preservative 8 completed Not Available [facility] 10/12/2022 07:19:20 Influenza, split virus, quadrivalent, preservative 7 completed Not Available [facility] 10/12/2022 07:19:20 Influenza, split virus, trivalent, preservative 2 completed Not Available [facility] 10/12/2022 07:19:20 COVID-19, mRNA, LNP-S, PF, 30 mcg/0.3 mL dose 2 completed Not Available [facility] 10/12/2022 07:19:20 Past Encounters Encounter ID Performer Location Encounter Start Date Encounter Closed Date Diagnosis/Indication Diagnosis SNOMED-CT Code Diagnosis ICD10 Code Diagnosis Note [id number] Varghese Ibarra MD [facility] Internal Med Ebony quintana [address] [place] [address] y , [place] [address] 04/08/2021 00:00:00 04/08/2021 22:58:31 [id number] Varghese Ibarra MD [facility] [address] [place] [address] [place] [address] 10/07/2021 00:00:00 10/07/2021 22:08:27 [id number] Varghese Ibarra MD [facility] [address] [place] [address] [place] [address] 04/28/2022 00:00:00 04/28/2022 22:21:47 [id number] Varghese Ibarra MD [facility] Internal Med [facility] [address] [place] [address] [facility] [address] [place] [address] 10/09/2022 14:10:30 10/09/2022 14:50:15 Cervical radiculopathy 16561801 M54.12 [id number] Varghese Ibarra MD [facility] Internal Med [address] [place], [facility] [address] [place] [address] 10/23/2022 13:07:36 10/23/2022 13:53:19 Renewal of prescription 699632813 Z76.0 Paresthesi a of upper limb 20757686 R20.2 [id number] Amandeep Rasmussen MD [facility] [place] [address] [place] [address] 02/09/2023 08:40:27 02/09/2023 09:29:44 Pain of left shoulder joint 8511701533 4807376 M25.697 [id number] Amandeep Rasmussen MD [facility] [place] [address] [place] [address] 03/24/2023 08:53:48 03/24/2023 09:07:00 Pain of left shoulder joint 0661153163 [id number] M25.729 [id number] Varghese Ibarra MD [facility] Internal Med [address] [facility] [place] [address] 04/21/2023 15:09:05 04/21/2023 16:34:42 Essential hypertension 68318416 I10 [facility] th examination 903312365 Z00.00 Hyperlipidemia 42928793 E78.5 [id number] Daron Moss MD [address] [id number] 04/24/2024 09:42:40 04/24/2024 10:24:21 Pain of left shoulder joint [id number] M25.512 Screening for malignant neoplasm of prostate [id number] Z12.5 Pure hypercholesterolemia 607742287 E78.00 Atrial fibrillation 4943 6004 I48.91 [facility] examination [id number] Z00.00 [id number] Daron Moss MD [address] [address] 06/22/2024 08:55:34 06/22/2024 11:18:35 Hyperlipidemia 73176563 E78.5 Atrial fibrillation 4943 6004 I48.91 Cervical radiculopathy 87056319 M54.12 Essential hypertension 53969241 I10 [id number] Daron Moss MD [address] [place] [address] 08/17/2024 09:41:38 08/17/2024 10:51:01 Strain of tendon of right shoulder region [id number] 7102 S46.911A Health Concerns Section Related Observation LastModified by Organization Detai ls LastModified Time None Recorded Concern Status LastModified by Organization Details LastModified Time None Recorded Advance Directives Directive N: Payers Encounter Date Sequence Insurance Name Policy Number Policy Madsen Covered Member ID Madsen Member ID Guarantor Name 03/24/2023 1 [place] [id number] Jeff W Nelly [id number] Jeff W Nelly 04/21/2023 1 [place] [id number] Jeff W Nelly [id number] Jeff W Nelly 04/24/2024 1 [id number] Jeff W Nelly [id number] Jeff W Nelly 06/22/2024 1 [id number] Jeff W Nelly [id number] Jeff W Nelly 08/17/2024 1 [place] [id number] Jeff W Nelly [id number] Jeff W Nelly Notes Date Note Type Note Provider Name and Address Organization Details Recorded Time 04/21/2023 text/html Wellness visit paresthesias of the upper extremity maybe a little bit betterfacial dermatitis responsive to the desonide doing better Varghese Ibarra MD [address], [employer] [place], [address], [place] 04/21/2023 21:16:53 04/24/2024 text/html Dr. Ibarra no elif lisa here . syncope , hosp stopped chlorthalidone . Had a colonoscopy 5 to 6 years ago JODIE Winchester [address], [address], [place], [address], [place] 05/01/2024 12:46:33 06/22/2024 text/html heart doc did a stress test , needs a cath JODIE Winchester [address], [facility] [address], [place], [address], [employer] [facility] [place] [facility] 07/01/2024 11:08:52 08/17/2024 text/html right shoulder strain ; physical therapy has not helped . JODIE Winchester [address], [facility] [address], [place], [address], [employer] [facility] [employer] 08/30/2024 10:13:55
== END 2024-09-01 10:47 | disposition home or self-care (01) ==
PROVIDERS: PCP Internal Medicine; Visit Provider Physician Assistant
DX: S46.911A Strain of unspecified muscle, fascia and tendon at shoulder and upper arm level, right arm, initial encounter (principal); X58.XXXA Exposure to other specified factors, initial encounter; M19.011 Primary osteoarthritis, right shoulder
CPT/HCPCS: 73221

== ENCOUNTER 2024-09-12 16:24 | Outpatient (CLI) | payer BC, SELFPAY ==
--- NOTE | ~2024-09-12 | XR_ITS ---
Right Shoulder Technique: AP and axillary views were obtained. Clinical History: Tendon strain Findings: No fracture or dislocation is seen. Osseous alignment is anatomic. The glenohumeral and acr omioclavicular joint spaces are preserved. Soft tissues are unremarkable. Impression: Unremarkable right shoulder radiographs. Reviewed, dictated and finalized at [facility]. Impression: Unremarkable right shoulder radiographs.
--- OUTSIDE RECORDS SUMMARY | 2024-09-12 16:30 | XMS_ITS | Continuity of Care Document ---
Author Organization [facility] Address [address] [place] [address] [address] [place] [address] Phone Care Team Providers Care Inseminator Name Role Phone Petra Ruiz Unavailable Unavailable Advance Directives Directive Yes / No Effective Date File Name No Information Encounters Encounter Description Practice Location Reason(s) For Visit Diagnoses Date Provider Providers Copied on Encounter [facility], [address], [place], [place], [id number], [place] tel:[phone] [facility] No Information [address] , [address], [place], [address], [place]. tel:[phone] Family History Family Member Type Diagnosis Age At Onset No Information Payers Payer name Insurance type Covered green party ID Authoriza tion(s) [place] [place] [id number] Social History Type Description Quantity Date Captured Comments Sex Male Smoking Status No Information Chief Complaint And Reason For Visit No Information Reason For Referral Reason For Referral No Information History Of Present Illness Encounter Date Complaint History Of Prese nt Illness No Information Functional Status Date Functional Assessmen t No Information Instructions Date Instruction Additional Infor mation No Information Assessments Type Assessment Date No Information Patient Care Teams Name Effective Dates (start - stop) Status Members No Information
--- OUTSIDE RECORDS SUMMARY | 2024-09-12 16:30 | XMS_ITS | Continuity of Care Document ---
Author Organization [facility] Address [address] [place] [address] Phone Care Team Providers Care Web Weaver Name Role Phone Dru Fermin MD Unavailable Unavailable Allergies, Adverse Reactions, Alerts Substance Reaction Status Criticality No Known Allergies Active No Inform ation Medications Medication Instructions Dosage Effective Dates (start - stop) Status Comments Urocit-K 10 10 mEq (1,080 mg) tablet,extended release take 1 tablet by oral route 2 times every day 10 MEQ - Active chlorthalidone 25 mg tablet take 1 tablet by oral route every day 25 MG - Active Flomax 0.4 mg capsule take 1 capsule by oral route every day 1/2 hour following the same meal each day 0.4 MG - Active Pap 30mg / Phentol 1mg / PGE 10mcg Intracavernosal use as directed PRN no more than 1 time per day and 3 times per week - Active CONTACT#[id number] [phone] Please dispense 5mL vial, Dr. Fermin will teach patient how to inject in the office , dispense needles and syringes. PATIENT NEEDS TO CALL TO MAKE A MORNING APPOINTMENT ONCE MEDICATION HAS BEEN RECIEVED !! . thanks REG Viagra 100 mg tablet take 1 tablet by oral route every day as needed approximately 1 hour before sexual activity 100 MG - Active rosuvastatin 40 mg tablet take 1 tablet by oral route every day 40 MG - Active Aspir-81 81 mg tablet,delayed release take 1 tablet by oral route every day - Active Vitamin C 500 mg tablet - Active multivitamin tablet - Active Glucosamine Daily Complex 1,500 mg-400 unit-100 mg tablet - Active ginkgo biloba 120 mg tablet - Active flaxseed oil 1,300 mg-omega 3,6,9 845 mg-117 mg-117 mg capsule - Active fiber 2 gram chewable tablet - Active fish oil-dha-epa 1,200 mg-144 mg-216 mg capsule - Active Cialis 20 mg tablet take 1 tablet by oral route every day 20 MG - Active naproxen sodium 220 mg capsule - Active niacin 500 mg tablet take 1 tablet by oral route 3 times every day 500 MG - Active Problems Condition Type Effective Dates (start - stop) Clini samantha Status Comments No Known Problems Procedures Procedure Date OFFICE/OUTPATIENT VISIT, EST ROUTINE VENIPUNCTURE BASIC METABOLIC PANEL Prostate Specific Antigen, Total 2020 PENILE INJECTION UA, Clinitek W/O Micro OFFICE/OUTPATIENT VISIT, EST UA, Clinitek W/O Micro OFFICE/OUTPATIENT VISIT, EST ROUTINE VENIPUNCTURE Prostate Specific Antigen, Total 2020 BASIC METABOLIC PANEL OFFICE/OUTPATIENT VISIT, EST UA, Clinitek W/O Micro ROUTINE VENIPUNCTURE ASSAY OF TOTAL TESTOSTERONE OFFICE/OUTPATIENT VISIT, EST OFFICE/OUTPATIENT VISIT, EST UA, Clinitek W/O Micro BASIC METABOLIC PANEL Prostate Specific Antigen, Total 2018 ROUTINE VENIPUNCTURE Sildenafil 20 MG, 90 Count Bottle ASSAY OF TOTAL TESTOSTERONE ROUTINE VENIPUNCTURE OFFICE/OUTPATIENT VISIT, EST UA, Clinitek W/O Micro Sildenafil 20 Mg, Each OFFICE/OUTPATIENT VISIT, EST UA, Clinitek W/O Micro BASIC METABOLIC PANEL Prostate Specific Antigen, Total 2016 ROUTINE VENIPUNCTURE OFFICE/OUTPATIENT VISIT, [facility] UANiya W/O Micro Advance Directives Directive Yes / No Effective Date File Name No Information Encounters Encounter Description Practice Location Reason(s) For Visit Diagnoses Date Provider Providers Copied on Encounter [facility], [address] [place] [address], [id number], tel:[phone] [facility] DCPM No Information 2 Jeny Gonsales. [address] [place], [place], [id number] , [place]. tel: [phone] [facility], [address] [place] [address], [id number], tel:[phone] [facility] No Information 2 Jeny Gonsales. [address], [place], [id number] , [place]. tel: [phone] [facility], [address] [place] [address], [id number], [place] tel:[phone] YANIV [place] No Information 1 Jeny Gonsales. [address], [place], [id number] , [place]. tel: [phone] OFFICE/OUTPA TIENT VISIT, EST [facility], [address] [place] [address], [id number], [place] tel:[phone] YANIV Prajapati Office Visit (chief complaint) Calculus of kidneyEncount er for screening for cancer of prostateMale erectile dysfunction, unspecifiedBP H w/ lower urinary tract symptom 1 Jeny Gonsales. [address], [place], [id number] , [place]. tel: [phone] Referring Provider: Dru Aragon, [address] [place], [address]. tel: [phone] [facility], [address] [place] [address], [id number], tel:[phone] YANIV [place] Office Visit (chief complaint) Male erectile dysfunction, unspecified 1 Jeny Gonsales. [address], [place], [id number] , [place]. tel: [phone] Referring Provider: Dru Aragon, [address] [place], [address]. tel: [phone] OFFICE/OUTPA TIENT VISIT, [facility], [address] [place] [address], [id number], tel:[phone] YANIV Prajapati Office Visit (chief complaint) Calculus of kidneyEncount er for screening for cancer of prostateMale erectile dysfunction, unspecified 1 Jeny Gonsales. [address], [place], [id number] , [place]. tel: [phone] Referring Provider: None None. [facility], [address] [place] [address], [id number], [place] tel:[phone] YANIV Alo No Information 1 Jeny Gonsales. [address], [place], [id number] , [place]. tel: [phone] OFFICE/OUTPA TIENT VISIT, EST [facility], [address] [place] [address], [id number], [place] tel:[phone] YANIV Prajapati Office Visit (chief complaint) Encounter for screening for cancer of prostateCalcu eliceo of kidneyMale erectile dysfunction, unspecified 1 Jeny Gonsales. [address], [place], [id number] , [place]. tel: [phone] Referring Provider: None None. OFFICE/OUTPA TIENT VISIT, EST [facility], [address], [id number], [place] tel:[phone] YANIV [place] Office Visit (chief complaint) Male erectile dysfunction, unspecifiedCa lculus of kidney Fe- 0 Jeny Gonsales. [address], [place], [id number] , [place]. tel: [phone] Referring Provider: None None. [facility], [facility] [address], [id number], [place] tel:[phone] YANIV [place] Male erectile dysfunction, unspecified 9 Jeny Gonsales. [address], [place], [id number] , [place]. tel: [phone] Referring Provider: None None. OFFICE/OUTPA TIENT VISIT, EST [facility], [facility] [address], [id number], [place] tel:[phone] YANIV Cohen[place] Office Visit (chief complaint) Male erectile dysfunction, unspecified 9 Jeny Gonsales. [address], [place], [id number] , [place]. tel: [phone] Referring Provider: Markell Ibarra MD, [address] [facility] [address], [place], [address]. tel:[phone] OFFICE/OUTPA TIENT VISIT, EST [facility], [address] [place] [address], [id number], [place] tel:[phone] YANIV [place] Office Visit (chief complaint) Calculus of kidneyMale erectile dysfunction, unspecifiedEn counter for screening for cancer of prostate 9 Jeny Gonsales. [address], [place], [id number] , [place]. tel: [phone] Referring Provider: None None. [facility], [address], [id number], [place] tel:[phone] [facility] No Information 8 Jeny Gonsales. [address] [place], [place], [id number] , . tel: [phone] Referring Provider: Dru Aragon, [address] [place], [address]. tel: [phone] [facility], [address] [place] [address], [id number], [place] tel:[phone] [facility]3] No Information 8 Jeny Gonsales. [address] [place], [place], [id number] , [place]. tel: [phone] Referring Provider: None None. OFFICE/OUTPA TIENT VISIT, EST [facility], [address] [place] [address], [id number], tel:[phone] YANIV Cohen[place] Office Visit (chief complaint) Calculus of kidneyMale erectile dysfunction, unspecified 8 Jeny Gonsales. [address], [place], [id number] , [place]. tel: [phone] Referring Provider: Markell Ibarra MD, [address] [facility] [address], [place], [address]. tel:[phone] [facility], [address] [place] [address], [id number], [place] tel:[phone] [facility] No Information 8 Jeny Gonsales. [address] [place], [place], [id number] , [place]. tel: [phone] Referring Provider: Dru Aragon, [address] [place], [address]. tel: [phone] OFFICE/OUTPA TIENT VISIT, EST [facility], [address] [facility] [address], [place], [id number], [place] tel:[phone] YANIV Manjarrez Office Visit (chief complaint) Calculus of kidneyMale erectile dysfunction, unspecified 7 Jeny Gonsales. [address] [place], [place], [id number] , [place]. tel: [phone] Referring Provider: Markell Ibarra MD, [address] [facility] [address], [place], [address]. tel:[phone] [facility], [address], [id number], [place] tel:[phone] YANIV Prajapati No Information 7 Jeny Gonsales. [address] [place], [place], [id number] , [place]. tel: [phone] Referring Provider: None None. OFFICE/OUTPA TIENT VISIT, NEW [facility], [address], [id number], [place] tel:[phone] YANIV Manzano Office Visit (chief complaint) Calculus of kidneyMale erectile dysfunction, unspecified 7 Jeny Gonsales. [address], [place], [id number] , [place]. tel: [phone] Referring Provider: None None. Family History Family Member Type Diagnosis Age At Onset Mother Problem (finding) High cholesterol Sister Problem (finding) High cholesterol Payers Payer name Insurance type Covered green party ID Authoriza tion(s) [employer] [place] PPO BL [id number] Social History Type Description Quantity Date Captured Comments Alcohol Use Details Unknown Caffeine Use Details Unknown Tobacco Use Status No Information Smoking Status No Information Sex Male Chief Complaint And Reason For Visit No Information Reason For Referral Reason For Referral No Information Plan Of Treatment Date Type Action Status Patient Education Prostate-Speci fic Antigen (PSA) Test:~ completed Future Order: Radiology Order Ab quiroz Single View - KUB ([id number]), Ordered on: Ordered Future Order: Radiology Order Ab quiroz Single View - KUB ([id number]), Collected on: Ordered History Of Present Illness Encounter Date Complaint History Of Prese nt Illness Comments: 52 y/o M here for evaluation.He has history of kidney stones, and he has been on urocitk, and HCTZ for ca ox stones.He states he has been on theses medications for > 10 years.He has prior treatment of kidney stones including SWL x 2 and URS x 1. He has had no intervenitons in > 5-6 yeaers.He has been seen previously in 2013 in [facility], with most recent KUB at that time showing no stones.He is on chlorthalidone at 25 mg qd and UroCitK bidHe has history of ED, and takes cialis 20 mg, which works wellRepeat litholink shows good ssCaOx, only mildly elevation of oxalate.f/u on 03/01/2019. He is concerned about not getting good response to cialis 20 mg anymore.f/u on 06/05/2019 AM T was normal x 2. Viagra is working well.f/u on 05/01/2020 No recent stone episodes.fu on 01/10/2021 he is here to discuss EDfu on 01/29/2021 f/u here for trimixf/u on 03/25/2021 Office Visit Comments: 52 y/ o M here for evaluation.He has history of kidney stones, and he has been on urocitk, and HCTZ for ca ox stones.He states he has been on theses medications for > 10 years.He has prior treatment of kidney stones including SWL x 2 and URS x 1. He has had no intervenitons in > 5-6 yeaers.He has been seen previously in 2013 in [facility], with most recent KUB at that time showing no stones.He is on chlorthalidone at 25 mg qd and UroCitK bidHe has history of ED, and takes cialis 20 mg, which works wellRepeat litholink shows good ssCaOx, only mildly elevation of oxalate.f/u on 03/01/2019. He is concerned about not getting good response to cialis 20 mg anymore.f/u on 06/05/2019 AM T was normal x 2. Viagra is working well.f/u on 05/01/2020 No recent stone episodes.fu on 01/10/2021 he is here to discuss EDfu on 01/29/2021 f/u here for trimix Office Visit Office Visit Comments: 52 y/o M here for evaluation.He has history of kidney stones, and he has been on urocitk, and HCTZ for ca ox stones.He states he has been on theses medications for > 10 years.He has prior treatment of kidney stones including SWL x 2 and URS x 1. He has had no intervenitons in > 5-6 yeaers.He has been seen previously in 2013 in [facility], with most recent KUB at that time showing no stones.He is on chlorthalidone at 25 mg qd and UroCitK bidHe has history of ED, and takes cialis 20 mg, which works wellRepeat litholink shows good ssCaOx, only mildly elevation of oxalate.f/u on 03/01/2019. He is concerned about not getting good response to cialis 20 mg anymore.f/u on 06/05/2019 AM T was normal x 2. Viagra is working well.f/u on 05/01/2020 No recent stone episodes.fu on 30/04/2020 he is here to discuss ED Office Visit (comments) 52 y/o M here for evaluation.He has history of kidney stones, and he has been on urocitk, and HCTZ for ca ox stones.He states he has been on theses medications for > 10 years.He has prior treatment of kidney stones including SWL x 2 and URS x 1. He has had no intervenitons in > 5-6 yeaers.He has been seen previously in 2013 in [facility], with most recent KUB at that time showing no stones.He is on chlorthalidone at 25 mg qd and UroCitK bidHe has history of ED, and takes cialis 20 mg, which works wellRepeat litholink shows good ssCaOx, only mildly elevation of oxalate.f/u on 03/01/2019. He is concerned about not getting good response to cialis 20 mg anymore.f/u on 06/05/2019 AM T was normal x 2. Viagra is working well.f/u on 05/01/2020 No recent stone episodes. Office Visit Office Visit (comments) 52 y/o M here for evaluation.He has history of kidney stones, and he has been on urocitk, and HCTZ for ca ox stones.He states he has been on theses medications for > 10 years.He has prior treatment of kidney stones including SWL x 2 and URS x 1. He has had no intervenitons in > 5-6 yeaers.He has been seen previously in 2013 in [facility], with most recent KUB at that time showing no stones.He is on chlorthalidone at 25 mg qd and UroCitK bidHe has history of ED, and takes cialis 20 mg, which works wellRepeat litholink shows good ssCaOx, only mildly elevation of oxalate.f/u on 03/01/2019. He is concerned about not getting good response to cialis 20 mg anymore.f/u on 06/05/2019 AM T was normal x 2. Viagra is working well. Office Visit Office Visit Office Visit (comments) 52 y/o M here for evaluation.He has history of kidney stones, and he has been on urocitk, and HCTZ for ca ox stones.He states he has been on theses medications for > 10 years.He has prior treatment of kidney stones including SWL x 2 and URS x 1. He has had no intervenitons in > 5-6 yeaers.He has been seen previously in 2013 in [facility], with most recent KUB at that time showing no stones.He is on chlorthalidone at 25 mg qd and UroCitK bidHe has history of ED, and takes cialis 20 mg, which works wellRepeat litholink shows good ssCaOx, only mildly elevation of oxalate.f/u on 03/01/2019. He is concerned about not getting good response to cialis 20 mg anymore. Office Visit (comments) 52 y/o M here for evaluation.He has history of kidney stones, and he has been on urocitk, and HCTZ for ca ox stones.He states he has been on theses medications for > 10 years.He has prior treatment of kidney stones including SWL x 2 and URS x 1. He has had no intervenitons in > 5-6 yeaers.He has been seen previously in 2013 in [facility], with most recent KUB at that time showing no stones.He is on chlorthalidone at 25 mg qd and UroCitK bidHe has history of ED, and takes cialis 20 mg, which works wellRepeat litholink shows good ssCaOx, only mildly elevation of oxalate.09/29/2017 He states his cialis is not working as well. He has no stone episodes. He is still on the HCTZ and UrocitKf/u on 10/26/2018 Office Visit Office Visit Office Visit (comments) 52 y/o M here for evaluation.He has history of kidney stones, and he has been on urocitk, and HCTZ for ca ox stones.He states he has been on theses medications for > 10 years.He has prior treatment of kidney stones including SWL x 2 and URS x 1. He has had no intervenitons in > 5-6 yeaers.He has been seen previously in 2013 in [facility], with most recent KUB at that time showing no stones.He is on chlorthalidone at 25 mg qd and UroCitK bidHe has history of ED, and takes cialis 20 mg, which works wellRepeat litholink shows good ssCaOx, only mildly elevation of oxalate.09/29/2017 He states his cialis is not working as well. He has no stone episodes. He is still on the HCTZ and UrocitK Office Visit Comments: 51 y/o M here for evaluation.He has history of kidney stones, and he has been on urocitk, and HCTZ for ca ox stones.He states he has been on theses medications for > 10 years.He has prior treatment of kidney stones including SWL x 2 and URS x 1. He has had no intervenitons in > 5-6 yeaers.He has been seen previously in 2013 in [facility], with most recent KUB at that time showing no stones.He is on chlorthalidone at 25 mg qd and UroCitK bidHe has history of ED, and takes cialis 20 mg, which works wellRepeat litholink shows good ssCaOx, only mildly elevation of oxalate. Office Visit Comments: 51 y/o M here for evaluation.He has history of kidney stones, and he has been on urocitk, and HCTZ for ca ox stones.He states he has been on theses medications for > 10 years.He has prior treatment of kidney stones including SWL x 2 and URS x 1. He has had no intervenitons in > 5-6 yeaers.He has been seen previously in 2013 in [facility], with most recent KUB at that time showing no stones.He is on chlorthalidone at 25 mg qd and UroCitK bidDemetrius has history of ED, and takes cialis 20 mg, which works well Functional Status Date Functional Assessmen t No Information Instructions Date Instruction Additional Infor joshua he is complaining of urgency, and frequency. I gave rx for flomax. Related to BPH w/ lower urinary tract symptom PSA adn BMP todayI r efilled Chlorthalidone and UrocitK.I will see him back in 1 year, but he is moving to [place] and will likely need to establish care. Related to Male erectile dysfunction, unspecified I taught self inject ion. I gave priapism instructiosn.f/u in3 m.He will titrate up on his dose. Related to Male erectile dysfunction, unspecified He wishes to try ICI I will call in trimixHe will call back to injection teaching. Related to Male erectile dysfunction, unspecified KUB now will call [facility] resutls.BMP and PSA today.I refilled his UrocitK and THizide and Viagraf/u in 1year w/ KUB> Related to Male erectile dysfunction, unspecified Continue the sildena jose which is working wellI discussed again 2nd line treatments. Related to Male erectile dysfunction, unspecified Will continue HCTZ a nd UrocitKI will plan to see him back in 10/2019 as scheduled with KUB the week before. Related to Calculus of kidney AM THe has tried a V ED.trial of viagraWe discussed 2nd line therapy, and he is intersetd in trying viagra first.If doesn't work well can try.I will see him back in 3 mo. Related to Male erectile dysfunction, unspecified trial of cialiswe di scussed 2nd line therapieswill need teaching if he wishes to try ICI such as trimix. Related to Male erectile dysfunction, unspecified I refilled his HCTZ and Urocit KBMP todayf/u in 1 year. Related to Calculus of kidney PSA today Related to Encou nter for screening for cancer of prostate I will check AM TI w ill give Rx for generic sildenafil Related to Male erectile dysfunction, unspecified HCTZ and UrocitK. Related to Samantha culus of kidney continue HCTZ and Ur oCitKRefilled.Gave infomration regarding low oxalate diet.F/u in 1 year. Related to Calculus of kidney I refilled his medic ations.I will see him back in 3 mo w/ BMP, PSA< and Litholink. Related to Male erectile dysfunction, unspecified Assessments Type Assessment Date No Information Patient Care Teams Name Effective Dates (start - stop) Status Members No Information
--- OUTSIDE RECORDS SUMMARY | 2024-09-12 16:30 | XMS_ITS | Clinical Summary ---
Author Organization [facility] [place] Address [facility] [place] [address] Care Team Providers Care Robotic Toy Inventor Name Role Phone Xiomara Powell MD Primary Care Provider Terence Lagunas MD Unavailable [phone] Allergies No known active allergies Medications [...] and nosebleed. Discussed potential attempts to trial [id number] antihistamine. 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
--- OUTSIDE RECORDS SUMMARY | 2024-09-12 16:30 | XMS_ITS | CONTINUITY OF CARE DOCUMENT ---
Author Name jadon barringtonjonas Address Unknown Organization [facility] Address [address] [place] [address] Phone [phone] Care Team Providers Care Sheep Sticker Name Role Phone Tiffanie MALONE, Hola Unavailable JONTAHAN FAJARDO Unavailable JONATHAN FAJARDO Unavailable [phone] PROBLEMS Condition Status Date Provider Notes Syncope active Hola Moreno MD Hyperlipidemia active Hola Moreno MD Kidney stones active Hola Moreno MD CAD (coronary artery disease) active Hola Moreno MD ENCOUNTERS Date Type Provider Location Encounter Diag nosis - In-person encounter Office Visit Hola Moreno MD [facility] CAD (coronary artery disease) - In-person encounter Office Visit Hola Moreno MD [facility] - In-person encounter Office Visit Hola Moreno MD [facility] SyncopeHyperlipidemiaKidney stones VITAL SIGNS Date Observation Value Provider Body Mass Index (Ratio) 24.07 kg/m2 Nick Moreno MD blood pressure, diastolic 84 mm[Hg] Balbina Galo blood pressure, systolic 133 mm[Hg] Lori Galo oxygen saturation, oximetry 97 % Kenna Galo pulse rate 70 /min Kenna Galo respiratory rate E&M 12 /[facility]&M 163 [lb_av] [facility] height E&M 69 [in_i] [facility] blood pressure, cuff size regular Balbina trinh [place] Body Mass Index (Ratio) 24.66 kg/m2 Nick Moreno MD blood pressure, diastolic 84 mm[Hg] [facility] blood [facility], systolic 129 mm[Hg] [facility] saturation, oximetry 97 % [facility] pulse rate 64 /min [facility] respiratory rate E&M 12 /min [facility] weight E&M 167 [lb_av] [facility] height E&M 69 [in_i] [facility] blood pressure, cuff size regular [facility] Body Mass Index (Ratio) 25.25 kg/m2 Nick Moreno MD blood pressure, diastolic 98 mm[Hg] [facility], systolic 140 mm[Hg] [facility] oxygen saturation, oximetry 98 % [facility] E&M 16 /min [facility] pulse rate 72 /min [facility] blood pressure, cuff size regular [facility] weight E&M 171 [lb_av] [facility] height E&M 69 [in_i] [facility] ALLERGIES No Known Drug Allergies RESULTS Date Observation Value Provider Reference Range Interpretation Location 7 prothrombin time (patient) 10.7 s [facility] 9.1-12.0 7 international normalized ratio (INR) 1.0 [facility] 0.9-1.2 7 lipoprotein, beta, serum, point, quantitative, calculated 81 mg/dL [facility] 0-99 7 HDL cholesterol, serum 74 mg/dL [facility] >39 7 triglyceride, serum, random 71 mg/dL [facility] 0-149 7 cholesterol, serum 169 mg/dL [facility] [id number] 4959/03/2 7 calcium, serum 10.3 mg/dL [facility] 8.6-10.2 High 7 carbon dioxide, venous blood 25 mmol/L [facility] 20-29 7 chloride, serum 105 mmol/L [facility] 96-106 7 potassium, serum 4.8 mmol/L [facility] 3.5-5.2 7 sodium, serum 144 mmol/L [facility] 168-847 1734/03/2 7 urea nitrogen/creatinin e ratio, serum 10 [...] Estab. 6 platelet count 214 X10E3/UL [facility] [phone]/03/2 6 red blood cell distribution width 11.8 [...] mouth once a day 4 Coreen Cordova [facility] rosuvastatin 40 mg tablet active Kuldeep Paniagua [...] DRISCOLLP smoking status Never smoker Coreen argueta [facility] Surgical History of - Tonsillectomy Surgical History of - Tonsillectomy Hola Moreno MD appendectomy, history of Appendectomy, Hx of Hola Moreno MD INSURANCE PROVIDERS Payer name Policy type / Coverage type [place] red constitution party ID [facility] [id number] ADVANCE DIRECTIVES Name Date DISCUSSED - NO DECISION MADE TREATMENT PLAN Date Name Performer Cardiology:08/15/24 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 mod-severe OM disease (not amenable to [...] Hola Moreno MD Cardiology Coreen Coynemigl ia [facility] Cardiology: H is updated medication list for this problem includes: Rosuvastatin 40 Mg Tablet (Rosuvastatin) Coreen Coynemiglia [facility] Cardiology:Patient h ad episode of syncope in [...] Coreen SABILLON Cardiology Hola Moreno MD Cardiology oHla Moreno MD Cardiology:30 day monitor Hola Moreno MD Date Name PROTHROMBIN TIME WIT H INR LIPID PANEL CBC (INCLUDES DIFF/P LT) BASIC METABOLIC PANE L W/EGFR Stress Exercise Card iolite Monitor - Telemetry (Mobile Cardiac)
--- OUTSIDE RECORDS SUMMARY | 2024-09-12 16:30 | XMS_ITS | Referral Summary ---
Author Organization [facility] [place] Address [facility] [place] [address] Care Team Providers Care Advertising Sales Manager Name Role Phone Xiomara Powell MD Primary Care Provider Terence Lagunas MD Unavailable [phone] Allergies No known active allergies Medications [...] and nosebleed. Discussed potential attempts to trial [id number]-[id number] antihistamine. Also consider using saline nasal spray [...] on file Legal Sex Male 7:53 PM [employer] Gender Identity Not on file Sexual Orientation [...] Most Recently Relevant to Health Maintenance Insurance [facility] Care Teams Advertising Sales Manager Relationship Specialty Start Date End Date Xiomara Powell MD PCP - General Family Medicine 12/08/23 Terence Lagunas MD [address] [facility] [address] [place] [address] Consulting Physician Urology 12/08/23
--- OUTSIDE RECORDS SUMMARY | 2024-09-12 16:30 | XMS_ITS | Data Portability ---
Author Organization [facility], Main Office Address [address] [place] [address] Care Team Providers Care Wire Stripping Machine Operator Name Role Phone VARGHESE IBARRA Primary Care Provider [phone] VARGHESE IBARRA Referring Provider Assessment Encounter Date [...] ordered Continue current therapy Follow-up 6 months [email or web address] Not available 04/21/2023 21:16:00 Plan of Treatment Reminders Order Date Submit Date Provider Last Modified By Organization Details Last Modified Time Details Appointments Follow Up 15 2024 08:00A Monique Moss MD Not available Not available Not available Lab PSA, serum or plasma [address] (Lab), [address] [place], [address], 05/01/2024 09:59:25 lipid panel, serum 2024 025 [facility] (Lab), [address] [place], [address], 05/12/2024 06:50:30 CMP, serum or plasma 2024 025 [facility] (Lab), [address] [place], [address], 05/12/2024 06:50:31 CK (creatine kinase), total, serum [address] (Lab), [address] [place], [address], 05/01/2024 09:59:25 CMP, serum or plasma 2023 024 [facility] Not available 05/17/2023 11:34:05 lipid panel, serum 2023 024 [facility] Not available 05/17/2023 11:34:04 CBC w/ auto diff 2023 024 [facility] Not available 05/17/2023 11:34:05 Referral cardiolog ist referral - Please call patient to schedule an appointme nt. Thank you. 2024 025 [facility] Referral Fax Line, [address], [place], [address], 04/25/2024 14:34:42 Procedures None recorded. Surgeries None recorded. Imaging MRI, shoulder, w/o contrast - Please call patient to schedule. 2024 025 [facility] (One Call Scheduling), [address] [place], [address], 09/05/2024 10:18:03 Medication Orders ezetimibe 10 mg tablet 2024 025 [facility], [address], [id number], 06/22/2024 09:54:41 Patient TargetsNo targets recorded. Patient InstructionsNo instructions recorded. 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 Thank you. Referring Physician: Lyndon Perez, Family Medicine, Encounter Date: 04/24/2024 Results Created Date Observation Date Name Description Value Unit Range Abnormal Flag Note LastModifiedBy Organization Detail LastModifiedTime 05/11/1905/12/2024 LIPID PANEL , STAND LADARIUS cholesterol, total 190 mg/dL <200 normal Not Available [address], [address], 05/12/2024 06:50:30 05/11/1905/12/2024 LIPID PANEL , STAND LADARIUS HDL cholesterol 70 mg/dL > or = 40 normal Not Available [address] [address] [place], [address], 05/12/2024 06:50:30 05/11/1905/12/2024 LIPID PANEL , STAND LADARIUS triglyceride s 85 mg/dL <150 normal Not Available [employer] [address], [address], 05/12/2024 06:50:30 05/11/1905/12/2024 LIPID PANEL , STAND LADARIUS LDL-choleste rol 102 mg/dL _(samantha c) high Refer ence range : <100 Odalys able range <100 mg/dL for prima ry preve ntion ; <70 mg/dL for patie nts with CHD or diabe tic patie nts with > or = 2 CHD risk facto rs. LDL-C is now calcu lated using the Vesna n-Hop sergo you n, which is a valid ated novel virgilio sadler accur acy than the Fried taina equat ion in the estim ation of LDL-C . Vesna n SS et al. JEWEL. 2013; 310(1 9): 2061- 2068 (http ://ed ucati on.Qu Gavin tracyclipkit. com/f aq/FA Q164) Not Available [address], [address], 05/12/2024 06:50:30 05/11/1905/12/2024 LIPID PANEL , STAND LADARIUS chol/HDLC ratio 2.7 (calc ) <5.0 normal Not Available [address], [address], 05/12/2024 06:50:30 05/11/1905/12/2024 LIPID PANEL , STAND LADARIUS non HDL cholesterol 120 mg/dL _(samantha c) <130 normal For patie nts with diabe yao plus 1 major ASCVD risk facto r, treat ing to a non-H DL-C goal of <100 mg/dL (LDL- C of <70 mg/dL ) is consi shadia mcallistero n. Not Available [address], [address], 05/12/2024 06:50:30 05/11/1905/12/2024 COMPR EHENS JULY METAB OLIC PANEL glucose 89 mg/dL 65-99 normal Fasti ng refer ence inter mario Not Available [address], [address], 05/12/2024 06:50:31 05/11/1905/12/2024 COMPR EHENS JULY METAB OLIC PANEL urea nitrogen (BUN) 10 mg/dL 7-25 normal Not Available [address], [address], 05/12/2024 06:50:31 05/11/1905/12/2024 COMPR EHENS JULY METAB OLIC PANEL creatinine 0.74 mg/dL 0.70-1 .30 normal Not Available [address], [address], 05/12/2024 06:50:31 05/11/19 25 05/12/2024 COMPR EHENS JULY METAB OLIC PANEL eGFR 104 mL/mi n/1.7 3m2 > or = 60 normal Not Available [address], [address], 05/12/2024 06:50:31 05/11/19 25 05/12/2024 COMPR EHENS JULY METAB OLIC PANEL BUN/creatini ne ratio SEE NOTE: (calc ) 6-22 Not Repor ayde: BUN and Creat inine are withi n refer ence range . Not Available [address], [address], 05/12/2024 06:50:31 05/11/19 25 05/12/2024 COMPR EHENS JULY METAB OLIC PANEL sodium 141 mmol/ L 135-14 6 normal Not Available [address], [address], 05/12/2024 06:50:31 05/11/19 25 05/12/2024 COMPR EHENS JULY METAB OLIC PANEL potassium 4.3 mmol/ L 3.5-5. 3 normal Not Available [address], [address], 05/12/2024 06:50:31 05/11/19 25 05/12/2024 COMPR EHENS JULY METAB OLIC PANEL chloride 106 mmol/ L 98-110 normal Not Available [address], [address], 05/12/2024 06:50:31 05/11/19 25 05/12/2024 COMPR EHENS JULY METAB OLIC PANEL carbon dioxide 29 mmol/ L 20-32 normal Not Available [address], [address], 05/12/2024 06:50:31 05/11/1905/12/2024 COMPR EHENS JULY METAB OLIC PANEL calcium 10.2 mg/dL 8.6-10 .3 normal Not Available [address], [address], 05/12/2024 06:50:31 05/11/19 25 05/12/2024 COMPR EHENS JULY METAB OLIC PANEL protein, total 6.9 g/dL 6.1-8. 1 normal Not Available [address], [address], 05/12/2024 06:50:31 05/11/19 25 05/12/2024 COMPR EHENS JULY METAB OLIC PANEL albumin 4.7 g/dL 3.6-5. 1 normal Not Available [address], [address], 05/12/2024 06:50:31 05/11/1905/12/2024 COMPR EHENS JULY METAB OLIC PANEL globulin 2.2 g/dL_ (calc ) 1.9-3. 7 normal Not Available [address], [address], 05/12/2024 06:50:31 05/11/19 25 05/12/2024 COMPR EHENS JULY METAB OLIC PANEL albumin/glob ulin ratio 2.1 (calc ) 1.0-2. 5 normal Not Available [address], [address], 05/12/2024 06:50:31 05/11/19 25 05/12/2024 COMPR EHENS JULY METAB OLIC PANEL bilirubin, total 0.8 mg/dL 0.2-1. 2 normal Not Available [address], [address], 05/12/2024 06:50:31 05/11/19 25 05/12/2024 COMPR EHENS JULY METAB OLIC PANEL alkaline phosphatase 53 U/L 35-144 normal Not Available [facility] [address] [address] [place], [address], 05/12/2024 06:50:31 05/11/19 25 05/12/2024 COMPR EHENS JULY METAB OLIC PANEL AST 30 U/L 10-35 normal Not Available [address] [address] [place], [address], 05/12/2024 06:50:31 05/11/19 25 05/12/2024 COMPR EHENS JULY METAB OLIC PANEL ALT 39 U/L 9-46 normal Not Available [address], [address], 05/12/2024 06:50:31 05/11/19 25 05/12/2024 CREAT INE KINAS E, TOTAL creatine kinase, total 57 U/L 23-325 normal Not Available [address], [address], 05/12/2024 06:50:32 05/11/19 25 05/12/2024 PSA, TOTAL [...] This test was perfo rmed using the Sieme ns chemi lumin escen t metho d. Value s obtai christopher from diffe rent assay metho ds canno t be used inter shore eably . PSA level s, regar dless of value , shoul d not be inter prete d as absol mariela evide nce of the prese nce or absen ce of dise se. Not Available [facility] [address], [place], [address], 05/12/2024 06:50:33 09/06/19 25 09/01/2024 MRI, shoul chris, w/o contr ast No observ ation record ed. [facility] [address], [place], [address], 09/05/2024 10:18:03 Result Notes None recorded. Problems Name Problem SNOMED Code Status Onset Date Resolution Date Notes Provider Name and Address Organization Details Recorded Time Pain in lower limb 83448592 Active Not Available [facility] 3 07:19:20 Hyperchole sterolemia 78931644 Active Not Available [facility] 3 07:19:20 Anxiety state 945436956 Active Not Available [facility] 3 07:19:20 Pure hyperchole sterolemia 923177100 Active Not Available [facility] 3 07:19:20 Dizziness and giddiness 156224980 Active Not Available [facility] 3 07:19:20 Numbness of hand 996386058 Active Not Available [facility] 3 07:19:20 History of calculus of kidney 275093828 Active 2018 Not Available [facility] 3 07:19:20 Hyperlipid emia 36774835 Active 2021 Not Available [facility] 3 07:19:20 Hemorrhoid s 39838419 Active Not Available [facility] 3 07:19:20 Skin sensation disturbanc e 15115475 Active Not Available [facility] 3 07:19:20 Chronic rhinitis 22238084 Active Not Available [facility] 3 07:19:20 Urolithias is 33726063 Active 2019 Not Available [facility] 3 07:19:20 Essential hypertensi on 05792557 Active 2022 Not Available [facility] 3 07:19:20 Cervical radiculopa thy 55401958 Active 2022 Not Available [facility] 3 07:19:20 Pain in left arm 419328540 Active 2022 NATALIIA Feng null, [facility] 3 13:54:04 Paresthesi a of upper limb 65854516 Active 2022 NATALIIA Feng null, [facility] 3 13:56:54 Pain of left shoulder joint 6079431289421 9109 Active 2022 Lakia Franklin RN null, [facility] 3 11:52:04 Screening for malignant neoplasm of prostate Active 2024 JODIE Winchester [address], [place], [address] , [facility] [employer] [facility] 5 10:13:16 Atrial fibrillati on 37883253 Active 2024 JODIE Winchester [address], [address], [place], [address] , [facility] [employer] [facility] 5 10:15:22 Adult health examinatio n Active 2024 JODIE Winchester [address], [place], [address] , [facility] [employer] [facility] 5 10:22:35 Strain of tendon of right shoulder region Active 2024 JODIE Winchester [address], [place], [address] , [facility] [employer] [facility] 5 10:36:45 Problem Notes None recorded. Procedures Surgical History Date Name Laterality Status Provider Name and Address Organization Details Recorded Time 1 Appendectomy completed Yee Youngblood [facility] [employer] [facility] 02/09/2023 08:58:53 Hernia Repair completed Alena Mendosa RN [facility] [employer] [facility] 04/24/2024 10:05:17 Imaging Results None recorded. Procedure [...] e 205.5 mcg (0.15 %) nasal spray [place] 2 spray(s) every day by intranas al route. 04/08 completed Not Available Not Available Not Available [employer] [facility] 2016 active Not Available Not Available Not Avai lable Vitals Date Recorded Body height Body mass index (BMI) Body weight Body temperature Heart rate Systolic blood pressure Diastolic blood pressure Provider Name and Address Organization Details Last Updated DateTime 4 175.26 cm 23.8 kg/m2 57705.3 7 g 98.4 [degF] 62 /min 114 mm[Hg] 72 mm[Hg] Dulce Maria Stinson MA [facility] [employer] [facility] 4 15:40:32 Date Recorded Body height Body mass index (BMI) Body weight Body temperature Oxygen saturation Oxygen saturation in Arterial blood by Pulse oximetry Heart rate Systolic blood pressure Diastolic blood pressure Provider Name and Address Organization Details Last Updated DateTime 5 175.26 cm 24.8 kg/m2 98320.2 4 g 98.4 [degF] 98 % 98 % 79 /min 122 mm[Hg] 88 mm[Hg] Alena Mendosa RN [facility] [employer] [facility] 5 09:59:27 Date Recorded Body height Body mass index (BMI) Body weight Body temperature Oxygen saturation Oxygen saturation in Arterial blood by Pulse oximetry Heart rate Systolic blood pressure Diastolic blood pressure Provider Name and Address Organization Details Last Updated DateTime 5 175.26 cm 24.9 kg/m2 11739.6 7 g 97 [degF] 97 % 97 % 76 /min 120 mm[Hg] 80 mm[Hg] NATALIIA Lin [facility] [employer] [facility] 5 09:37:06 Date Recorded Body height Body mass index (BMI) Body weight Body temperature Heart rate Oxygen saturation Oxygen saturation in Arterial blood by Pulse oximetry Systolic blood pressure Diastolic blood pressure Provider Name and Address Organization Details Last Updated DateTime 175.26 cm 23.6 kg/m2 44495.7 8 g 97 [degF] 64 /min 98 % 98 % 128 mm[Hg] 74 mm[Hg] Zoiemagdalena Dempsey, [facility] [employer] [facility] 09:51:28 Date Recorded Body height Body mass index (BMI) Body weight Provider Name and Address Organization Details Last Updated DateTime 03/24/2023 175.26 cm 22 kg/m2 35485.26 g Salina Baez, [facility] [employer] [facility] [employer] [facility] 03/24/2023 08:55:55 Social History Question Answer Notes LastModified by [employer] Details LastModified Time Tobacco Smoking Status Never Smoker Not Available [facility] 06/10/2022 14:44:39 Do You Have An Advance Directive? No [id number] Information not available 06/10/2022 What Is Your Level Of Caffeine Consumption? Moderate [id number] Information not available 06/10/2022 In The 14 Days Before Symptom Onset, Have You Had Close Contact With A Laboratory-confirm ed COVID-19 While That Case Was Ill? No [id number] Information not available 06/10/2022 In The 14 Days Before Symptom Onset, Have You Had Close Contact With A Person Who Is Under Investigation For COVID-19 While That Person Was Ill? No [id number] Information not available 06/10/2022 What Type Of Diet Are You Following? REGULAR [id number] Information not available 06/10/2022 Do You Have A Medical Power Of Obgyn Hospitalist Physician? No [id number] Information not available 06/10/2022 What Was The Date Of Your Most Recent Tobacco Screening? 04/21/2023 [email or web address] Information not available 04/21/2023 Have You Recently Traveled Abroad? No [id number] Information not available 06/10/2022 Sex: Unknown Functional Status Question Answer Note LastModified by [employer] Details LastModified Time Do you use any illicit or recreational drugs? No [id number] Information not available 06/10/2022 What is your level of alcohol consumption? Occasional [id number] 026 Information not available 06/10/2022 What is your exercise level? Moderate [id number] 026 Information not available 06/10/2022 Mental Status None recorded. Family History Nothing Reported Notes:adopted Medical History Condition Response ARTHRITIS Y URINARY/BLADDER/KIDNEY PROBLEMS Y Immunizations Vaccine Type Date Status Note Provider Nam e and Address Organization Details Recorded Time Influenza, split virus, quadrivalent, preservative 8 completed Not Available [facility] 10/12/2022 07:19:20 Influenza, split virus, quadrivalent, preservative 7 completed Not Available [facility] 10/12/2022 07:19:20 Influenza, split virus, trivalent, preservative 2 completed Not Available [facility] 10/12/2022 07:19:20 COVID-19, mRNA, LNP-S, PF, 30 mcg/0.3 mL dose 2 completed Not Available [facility] 10/12/2022 07:19:20 Past Encounters Encounter ID Performer Location Encounter Start Date Encounter Closed Date Diagnosis/Indication Diagnosis SNOMED-CT Code Diagnosis ICD10 Code Diagnosis Note [id number] Varghese Ibarra MD [facility] Internal Med Ebony kate [facility] [address] [address] 04/08/2021 00:00:00 04/08/2021 22:58:31 [id number] Varghese Ibarra MD [facility] Internal Med Ebony kate [facility] [address] [address] 10/07/2021 00:00:00 10/07/2021 22:08:27 [id number] Varghese Ibarra MD [facility] [place] Med Ebony kate [address] [address] 04/28/2022 00:00:00 04/28/2022 22:21:47 [id number] Varghese Ibarra MD [facility] Internal Med [facility] 15 [address] [facility] [address] [place] [address] 10/09/2022 14:10:30 10/09/2022 14:50:15 Cervical radiculopathy 11827996 M54.12 [id number] Varghese Ibarra MD [facility] Internal Med [facility] [address] [address] 10/23/2022 13:07:36 10/23/2022 13:53:19 Renewal of prescription 453746910 Z76.0 Paresthesi a of upper limb 18660361 R20.2 [id number] Amandeep Rasmussen MD [facility] [address] [place] [address] 02/09/2023 08:40:27 02/09/2023 09:29:44 Pain of left shoulder joint 2174589431 0373164 M25.367 [id number] Amandeep Rasmussen MD [facility] [address] [place] [address] 03/24/2023 08:53:48 03/24/2023 09:07:00 Pain of left shoulder joint 9055074975 8745509 M25.905 [id number] Varghese Ibarra MD [facility] Internal Med [facility] [address] [address] 04/21/2023 15:09:05 04/21/2023 16:34:42 Essential hypertension 94480799 I10 Adult heal th examination 357940604 Z00.00 Hyperlipidemia 63454172 E78.5 [id number] Daron Moss MD [address] [address] 04/24/2024 09:42:40 04/24/2024 10:24:21 Pain of left shoulder joint 4500614122 4602488 M25.512 Screening for malignant neoplasm of prostate 742411286 Z12.5 Pure hypercholesterolemia 373389442 E78.00 Atrial fibrillation 4943 6004 I48.91 Adult heal th examination 484303780 Z00.00 [id number] Daron Moss MD [address] [address] 06/22/2024 08:55:34 06/22/2024 11:18:35 Hyperlipidemia 45027879 E78.5 Atrial fibrillation 4943 6004 I48.91 Cervical radiculopathy 71212903 M54.12 Essential hypertension 75432951 I10 [id number] Daron Moss MD [facility] [address] [address] 08/17/2024 09:41:38 08/17/2024 10:51:01 Strain of tendon of right shoulder region 8806133566 7102 S46.911A Health Concerns Section Related Observation LastModified by Organization Detai ls LastModified Time None Recorded Concern Status LastModified by Organization Details LastModified Time None Recorded Advance Directives Directive N: Payers Encounter Date Sequence Insurance Name Policy Number Policy Madsen Covered Member ID Madsen Member ID Guarantor Name 03/24/2023 1 [place] [id number] Jeff W Nelly [id number] Jeff W Nelly 04/21/2023 1 [place] [id number] Jeff W Nelly [id number] Jeff W Nelly 04/24/2024 1 [place] [id number] Jeff W Nelly [id number] Jeff W Nelly 06/22/2024 1 [place] [id number] Jeff W Nelly [id number] Jeff W Nelly 08/17/2024 1 [place] [id number] Jeff W Nelly [id number] Jeff W Nelly Notes Date Note Type Note Provider Name and Address Organization Details Recorded Time 04/21/2023 text/html Wellness visit paresthesias of the upper extremity maybe a little bit betterfacial dermatitis responsive to the desonide doing better Varghese Ibarra MD [address] [place] [address], [address] [address], [place], [address], [facility] 04/21/2023 21:16:53 04/24/2024 text/html Dr. Ibarra no elif lisa here . syncope , hosp stopped chlorthalidone . Had a colonoscopy 5 to 6 years ago JODIE Winchester [address], [place], [address], [facility] [employer] 05/01/2024 12:46:33 06/22/2024 text/html heart doc did a stress test , needs a cath JODIE Winchester [address], [place], [address], [facility] 07/01/2024 11:08:52 08/17/2024 text/html right shoulder strain ; physical therapy has not helped . JODIE Winchester [address], [place], [address], [facility] 08/30/2024 10:13:55
--- OUTSIDE RECORDS SUMMARY | 2024-09-12 16:30 | XMS_ITS | Clinical Summary ---
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
--- OUTSIDE RECORDS SUMMARY | 2024-09-12 16:30 | XMS_ITS | Clinical Summary ---
Author Organization [facility] Address [address] [place] [address] Care Team Providers Care Email Production Consultant Name Role Phone Markell Ibarra MD Primary Care Provider [phone] Source Comments [facility],non-owned Affiliates and Associated Physician Practices is amultiple site organization consisting of ambulatory clinics and hospital sitesin [place], [place], [place] and [place]. This disclosure is being madepursuant to the Care Everywhere program and may not contain all information available regarding this patient. 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 Gender Identity Not on file Sexual Orientation Not on file Last Filed Vital Signs Vital Sign Reading Time Taken Comments Blood Pressure 126/88 04/18/2024 10:40 AM RAZOR SHARPENER Pulse 76 04/18/2024 10:40 AM RAZOR SHARPENER Temperature 36.6 C (97.8 F) 04/18/2024 10:40 AM RAZOR SHARPENER Respiratory Rate 18 04/18/2024 10:40 AM RAZOR SHARPENER Oxygen Saturation 96% 04/18/2024 10:40 AM RAZOR SHARPENER Inhaled Oxygen Concentration - - Weight 77 kg (169 lb 11.2 oz) 04/18/2024 10:40 A M RAZOR SHARPENER Height 175.3 cm (5' 9) 04/18/2024 10:40 AM RAZOR SHARPENER Body Mass Index 25.06 04/18/2024 10:40 AM RAZOR SHARPENER Plan of Treatment Health Maintenance Due Date [...] 2024 SCREENING FOR DIABETES 04/10/2027 , 04/09/2024, 04/08/2024, Additional history exists DTAP/TDAP/TD VACCINES (2 - Td or Tdap) [...] (CALCIUM TOTAL) AM Draw 04/10/2024 2:54 AM RAZOR SHARPENER Syncope and collapse Hypokalemia from Last 3 Months or Most Recently Relevant to Health Maintenance Results * (ABNORMAL) BASIC METABOLIC PANEL (CALCIUM TOTAL) (04/10/2024 2:54 AM RAZOR SHARPENER) BUN 14 7 - 26 mg/dL 04/10/2024 4:44 AM [facility] Creatinine 0.67(L) 0.71 - 1.16 mg/dL 04/10/2024 4:44 AM [facility] Sodium 133(L) 136 - 145 mmol/L 04/10/2024 4:44 AM [facility] Potassium 3.9 3.5 - 4.5 mmol/L 04/10/2024 4:44 AM [facility] Chloride 101 98 - 107 mmol/L 04/10/2024 4:44 AM [facility] CO2 26 22 - 29 mmol/L 04/10/2024 4:44 AM [facility] Glucose 101(H) 70 - 99 mg/dL 04/10/2024 4:44 AM [facility] Calcium 9.4 8.4 - 10.2 mg/dL 04/10/2024 4:44 AM [facility] Anion Gap 6 6 - 16 04/10/2024 4:44 AM [facility] BUN/Creatinine Ratio 21 7 - 23 04/10/2024 4:44 AM [facility] Osmolality Calculated 277 275 - 295 mOsm/kg 04/10/2024 4:44 AM [facility] eGFR by CKD-EPI >90 >=90 mL/min/1.7 3 m2 04/10/2024 4:44 AM [facility] Blood BLOOD SPECIMEN / Unknown Lab Venipuncture / Unknown 04/10/2024 2:54 AM RAZOR SHARPENER 04/10/2024 4:13 AM [facility] Anali Owens MD LAB - CHEMISTRY ORDERABLES nal Result [facility] [address] [place] [address], [facility] [phone] from Last 3 Months or Most Recently Relevant to Health Maintenance Insurance ANTH Advance Directives * Full Code (Latest Code Status on File) Date Activated Date Inactivated Comments 04/08/2024 3:06 PM 04/10/2024 7:14 PM Care Teams Email Production Consultant Relationship Specialty Start Date End Date Markell Ibarra MD [address] [place] [address] PCP - General 09/07/08
== END 2024-09-12 16:25 | disposition home or self-care (01) ==
PROVIDERS: PCP Family Medicine; Visit Provider Physician Assistant
DX: S46.911A Strain of unspecified muscle, fascia and tendon at shoulder and upper arm level, right arm, initial encounter (principal); X58.XXXA Exposure to other specified factors, initial encounter
CPT/HCPCS: 73030

== ENCOUNTER 2024-10-06 12:46 | Outpatient (CLI) | payer BC, SELFPAY ==
--- NOTE | ~2024-10-06 | XR_ITS ---
EXAM/PROCEDURE: XR abdomen/kub 1V - 10/06/2024 12:50 CDT HISTORY: 59 years old Male with HX KIDNEY STONES COMPARISON: None available. TECHNIQUE: AP view(s) of the abdomen. FINDINGS: The bowel gas pattern is normal. There is no evidence for obstruction. No free intraperitoneal air is identified on this supine radiograph. The visualized soft tissue shadows are unremarkable. No gross bony abnormalities are seen. Visualized portions of lung bases are clear. IMPRESSION: No acute process. Reviewed, dictated and finalized at location A. IMPRESSION: No acute process.
--- NOTE | ~2024-10-06 | CT_ITS ---
Non-contrast CT scan of the Abdomen and Pelvis Clinical indication: Kidney stone Technique: 2.5 mm axial scans were obtained through the abdomen and pelvis without intravenous or or al contrast. Dose reduction technique was used on this scan by utilizing automated exposure control a nd iterative reconstruction technique. The dose-length product (DLP) was 297.26 mGy-cm. Findings: Images through the lung bases reveal no abnormalities. There is moderate left hydronephrosis without evidence of stone or obstructing mass. Right kidney unr emarkable. The liver, spleen, pancreas, gallbladder, and adrenals appear normal. There is no aortic aneurysm. There is no evidence of bowel obstruction. Prominent stool suggest constipation. Images through the pelvis were performed. There is no evidence of ascites or lymphadenopathy. Urinary bladder unremarkable. Prostate gland enlarged. No ascites. Impression: Moderate left hydroureteronephrosis without evidence of stone. Constipation. Reviewed, dictated and finalized at [facility]. Impression: Moderate left hydroureteronephrosis without evidence of stone. Constipation.
== END 2024-10-06 12:47 | disposition home or self-care (01) ==
LOC: MICIMG 12:47
PROVIDERS: PCP Family Medicine; Visit Provider Urology
DX: N13.30 Unspecified hydronephrosis (principal); K59.00 Constipation, unspecified; Z87.442 Personal history of urinary calculi
CPT/HCPCS: 74018; 74176

== ENCOUNTER 2024-11-09 07:56 | Outpatient (CLI) | payer BC, SELFPAY ==
--- NOTE | ~2024-11-09 | XR_ITS ---
XR abdomen/kub 1V 11/09/2024 08:23 Indication: Hydronephrosis Procedure: KUB Comparison: 10/06/2024 Findings: There are new calcifications in the right pelvis, suspicious for distal ureteral or bladder stones. There are surgical changes of the right upper abdomen consistent with prior hernia repair. N onobstructive bowel gas pattern. Moderate colonic fecal loading. Impression: 1: New calcifications right lower pelvis which may represent distal ureteral stones or bladder stones . Consider correlation with CT. Reviewed, dictated and finalized at location B. Impression: 1: New calcifications right lower pelvis which may represent distal ureteral st ones or bladder stones. Consider correlation with CT.
--- NOTE | ~2024-11-09 | CT_ITS ---
CT of the Abdomen and Pelvis: Indication: Hydronephrosis Technique: 2.5 mm axial scans were obtained through the abdomen and pelvis prior to and following in travenous administration of 130 cc of Omnipaque 350. Dose reduction technique was used on this scan b y utilizing automated exposure control and iterative reconstruction technique. The dose-length produc t (DLP) was 936.14 mGy-cm. COMPARISON: 10/06/2024 Findings: Scans through the lung bases are unremarkable. The liver, spleen, pancreas, gallbladder, adrenals and right kidney are within normal limits. There i s mild to moderate left hydronephrosis, no evidence of delayed excretion on postcontrast images. No r enal or ureteral stones on either side. No evidence of aortic aneurysm. No lymphadenopathy. No bowel obstruction or bowel wall thickening. There is no evidence to suggest acute appendicitis. Images through the pelvis were performed. Urinary bladder unremarkable. No pelvic mass seen. Prostate gland is enlarged. No ascites. Impression: Moderate left hydronephrosis. No distinct evidence for delayed excretion on postcontrast images. Nucl ear medicine renal scan can be considered to better evaluate for renal function or obstructive uropat hy, as indicated. Enlarged prostate gland. Reviewed, dictated and finalized at location . Impression: Moderate left hydronephrosis. No distinct evidence for delayed excretion on pos tcontrast images. Nuclear medicine renal scan can be considered to better evalu ate for renal function or obstructive uropathy, as indicated. Enlarged prostate gland.
--- OUTSIDE RECORDS SUMMARY | 2024-11-09 08:03 | XMS_ITS | Clinical Summary ---
Author Organization [facility] Address [address] [place] [address] Care Team Providers Care Health Actuary Name Role Phone Markell Ibarra MD Primary Care Provider [phone] Source Comments [facility],non-owned Affiliates and Associated Physician Practices is amultiple site organization consisting of ambulatory clinics and hospital sitesin [place], [place], [place] and [place]. This disclosure is being madepursuant to the Care Everywhere program and may not contain all information available regarding this patient. 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 Gender Identity Not on file Sexual Orientation Not on file Last Filed Vital Signs Vital Sign Reading Time Taken Comments Blood Pressure 126/88 04/18/2024 10:40 AM GUIDANCE CONSULTANT Pulse 76 04/18/2024 10:40 AM GUIDANCE CONSULTANT Temperature 36.6 C (97.8 F) 04/18/2024 10:40 AM GUIDANCE CONSULTANT Respiratory Rate 18 04/18/2024 10:40 AM GUIDANCE CONSULTANT Oxygen Saturation 96% 04/18/2024 10:40 AM GUIDANCE CONSULTANT Inhaled Oxygen Concentration - - Weight 77 kg (169 lb 11.2 oz) 04/18/2024 10:40 A M GUIDANCE CONSULTANT Height 175.3 cm (5' 9) 04/18/2024 10:40 AM GUIDANCE CONSULTANT Body Mass Index 25.06 04/18/2024 10:40 AM GUIDANCE CONSULTANT Plan of Treatment Health Maintenance Due Date [...] - Risk 60-74 years 1-dose series) 2024 INFLUENZA VACCINE (#1) 2024 4, 01/17/2023, 02/06/2022, Additional history exists SCREENING FOR DIABETES 04/10/2027 , 04/09/2024, 04/08/2024, [...] (CALCIUM TOTAL) AM Draw 04/10/2024 2:54 AM GUIDANCE CONSULTANT Syncope and collapse Hypokalemia from Last 3 Months or Most Recently Relevant to Health Maintenance Results * (ABNORMAL) BASIC METABOLIC PANEL (CALCIUM TOTAL) (04/10/2024 2:54 AM GUIDANCE CONSULTANT) BUN 14 7 - 26 mg/dL 04/10/2024 4:44 AM GUIDANCE CONSULTANT [facility] Creatinine 0.67(L) 0.71 - 1.16 mg/dL 04/10/2024 4:44 AM GUIDANCE CONSULTANT [facility] Sodium 133(L) 136 - 145 mmol/L 04/10/2024 4:44 AM [facility] Potassium 3.9 3.5 - 4.5 mmol/L 04/10/2024 4:44 AM [facility] Chloride 101 98 - 107 mmol/L 04/10/2024 4:44 AM [facility] CO2 26 22 - 29 mmol/L 04/10/2024 4:44 AM [facility] Glucose 101(H) 70 - 99 mg/dL 04/10/2024 4:44 AM [facility] Calcium 9.4 8.4 - 10.2 mg/dL 04/10/2024 4:44 AM [facility] Anion Gap 6 6 - 16 04/10/2024 4:44 AM [facility] BUN/Creatinine Ratio 21 7 - 23 04/10/2024 4:44 AM [facility] Osmolality Calculated 277 275 - 295 mOsm/kg 04/10/2024 4:44 AM [facility] eGFR by CKD-EPI >90 >=90 mL/min/1.7 3 m2 04/10/2024 4:44 AM [facility] Blood BLOOD SPECIMEN / Unknown Lab Venipuncture / Unknown 04/10/2024 2:54 AM GUIDANCE CONSULTANT 04/10/2024 4:13 AM [facility] Anali Owens MD LAB - CHEMISTRY ORDERABLES Fi nal Result [facility] [address] [place] [address], [facility] [phone] from Last 3 Months or Most Recently Relevant to Health Maintenance Insurance ANTH Advance Directives * Full Code (Latest Code Status on File) Date Activated Date Inactivated Comments 04/08/2024 3:06 PM 04/10/2024 7:14 PM Care Teams Health Actuary Relationship Specialty Start Date End Date Markell Ibarra MD [address] [place], [place] [id number] PCP - General 09/07/08
--- OUTSIDE RECORDS SUMMARY | 2024-11-09 08:03 | XMS_ITS | Referral Summary ---
Author Organization [facility] [address] [place] [address] Address [facility] [place] [address] Care Team Providers Care Knife Grinder Name Role Phone Xiomara Powell MD Primary Care Provider Terence Lagunas MD Unavailable [phone] Allergies No known active allergies Medications [...] and nosebleed. Discussed potential attempts to trial idkw-sis-llzcjpi antihistamine. 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
--- OUTSIDE RECORDS SUMMARY | 2024-11-09 08:03 | XMS_ITS | Clinical Summary ---
Author Organization [facility] [address] [place] [address] Address [facility] [place] [address] Care Team Providers Care General Helper Name Role Phone Xiomara Powell MD Primary Care Provider Terence Lagunas MD Unavailable [phone] Allergies No known active allergies Medications [...] and nosebleed. Discussed potential attempts to trial blaa-prm-ydatusc antihistamine. 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
--- OUTSIDE RECORDS SUMMARY | 2024-11-09 08:03 | XMS_ITS | Clinical Summary ---
Author Organization [facility] Address [address] [place] [address] Care Team Providers Care Director Of Sustainability Programs Name Role Phone Unavailable Primary Care Provider Unavailabl e Social History Tobacco Use Types Packs/Day Years Used Date Smoking Tobacco: Never Assessed Sex and Gender Information Value Date Recorded Sex Assigned at Not on file Legal Sex Male 7:07 PM CDT Gender Identity Not on file Sexual Orientation Not on file Plan of Treatment Health Maintenance Due Date Last Done Comments Colorectal Cancer Screening Colonoscopy (10 Years) 1964 Annual Physical 1967 Hepatitis C 1982 Pneumococcal Vaccine: 50+ Years (1 of 1 - PCV) 2014 COVID-19 Vaccine ( - 2023-2 5 season) 2023 02/06/2022, 07/15/2020, 06/26/2020 DTaP, Tdap and Td Vaccines ( 2 - Td or Tdap) 04/08/2034 04/08/2024 RSV Immunization or 60+ Years (1 - 1-dose 75+ series) 2039 Zoster Vaccines Completed 09/18/2022, 07/13/2022 Meningococcal B Vaccine Aged Out No l onger eligible based on patient's age to complete this topic Meningococcal Vaccine Aged Out No elif lisa eligible based on patient's age to complete this topic RSV Immunizations Under 20 Months Aged Out No longer eligible b ased on patient's age to complete this topic
--- OUTSIDE RECORDS SUMMARY | 2024-11-09 08:03 | XMS_ITS | Clinical Summary ---
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 Gender Identity Not on file Sexual Orientation Not on file Plan of Treatment Health Maintenance Due Date Last Done Comments Hepatitis C Virus (HCV) Screening 1965 TdaP Immunization 1964 Cologuard 2009 Colonoscopy 2009 Colorectal Cancer Screening 2009 Immunochemical Fecal Occult Blood 2009 Pneumococcal Immunization (5 0+ years) (1 of 1 - PCV) 2014 Zoster Immunization (1 of 2) 2014 SARS-COV-2 Immunization ( - 2023- season) 2023 Influenza Immunization (#1) 12/11/202401/10, 01/30/2017 Respiratory Syncytial Virus (RSV) Immunization (Adult) (1 - 1-dose 75+ series) 2039 Hepatitis B Immunization Aged Out No longer eligible based on patient's age to complete this topic Human Papillomavirus (HPV) Immunization Aged Out No longer eligible b ased on patient's age to complete this topic Meningococcal Immunization (ACWY) Aged Out No longer eligible b ased on patient's age to complete this topic Rotavirus Immunization Aged Out No lo nger eligible based on patient's age to complete this topic
[2024-11-09 08:36] LABS: Estimated Glomerular Filt Rate > 60
== END 2024-11-09 07:57 | disposition home or self-care (01) ==
PROVIDERS: PCP Family Medicine; Visit Provider Urology
DX: N13.30 Unspecified hydronephrosis (principal); N40.0 Benign prostatic hyperplasia without lower urinary tract symptoms
CPT/HCPCS: 74018; 74178; Q9967

== ENCOUNTER 2024-12-18 08:45 | Outpatient (CLI) | payer BC, SELFPAY ==
--- NOTE | ~2024-12-18 | NM_ITS ---
EXAMINATION: CJ roman renal scan DATE: 12/18/2024 11:43 INDICATION: Left hydronephrosis TECHNIQUE: 8.5 mCi Tc-99m MAG3 was administered IV. 40 mg furosemide was administered IV 5 minutes afterward. The patient was scanned in the supine position. A posterior abdominal radionuclide angiogram was obtained. A subsequent time course of static images of the kidneys, ureters, and bladder was obtained. COMPARISON: None FINDINGS: The posterior abdominal radionuclide angiogram and sequential static images show normal size, position, and morphology of the kidneys. Peak renal parenchymal uptake was 5.5 min in left kidney and 5.5 min in right kidney (normal peak 3-5 minutes). The relative early renal uptake was 54% on the left and 46% on the right (<40% is abnormal). No abnormalities of the ureters or bladder are seen. T1/2 for clearance of activity from the left kidney and proximal collecting system was 8 minutes. T1/2 for clearance of activity from the right kidney and proximal collecting system was 3 minutes. Notes on interpretation: T1/2 <10 minutes is normal, 10-15 minutes is low grade obstruction of questionable clinical significance, 15-20 minutes is partial obstruction that is likely clinically significant, >20 minutes is high grade obstruction. Note that false positives may be seen with supine positioning, dehydration, severely dilated nonobstructed kidney, atonic collecting system, poor renal function, and chronic furosemide use. IMPRESSION: 1. Symmetric kidney function. 2. No delay in activity clearance from either kidney to suggest fixed obstruction. Reviewed, dictated and finalized at location A. IMPRESSION: 1. Symmetric kidney function. 2. No delay in activity clearance from either kidney to suggest fixed obstruct ion.
--- OUTSIDE RECORDS SUMMARY | 2024-12-18 08:55 | XMS_ITS | Clinical Summary ---
Author Organization [facility] Address [address] [place] [address] Care Team Providers Care Cruise Staff Member Name Role Phone Unavailable Primary Care Provider [...] - PCV) 2014 COVID-19 Vaccine ( - 2024-2 6 season) 2024 02/06/2022, 07/15/2020, 06/26/2020 DTaP, Tdap and Td [...]
--- OUTSIDE RECORDS SUMMARY | 2024-12-18 08:55 | XMS_ITS | Clinical Summary ---
Author Organization [facility] Address [address] [place] [address] Care Team Providers Care Plexiglas Former Name Role Phone Markell Ibarra MD Primary Care Provider [phone] Source Comments [facility],non-owned Affiliates and Associated Physician Practices is amultiple site organization consisting of ambulatory clinics and hospital sitesin [place], [place], [place] and [place]. This disclosure is being madepursuant to the Care Everywhere program and may not contain all information available regarding this patient. 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 OPERATOR Gender Identity Not on file Sexual Orientation Not on file Last Filed Vital Signs Vital Sign Reading Time Taken Comments Blood Pressure 126/88 04/18/2024 10:40 AM INCUBATOR OPERATOR Pulse 76 04/18/2024 10:40 AM INCUBATOR OPERATOR Temperature 36.6 C (97.8 F) 04/18/2024 10:40 AM INCUBATOR OPERATOR Respiratory Rate 18 04/18/2024 10:40 AM INCUBATOR OPERATOR Oxygen Saturation 96% 04/18/2024 10:40 AM INCUBATOR OPERATOR Inhaled Oxygen Concentration - - Weight 77 kg (169 lb 11.2 oz) 04/18/2024 10:40 A M INCUBATOR OPERATOR Height 175.3 cm (5' 9) 04/18/2024 10:40 AM INCUBATOR OPERATOR Body Mass Index 25.06 04/18/2024 10:40 AM INCUBATOR OPERATOR Plan of Treatment Health Maintenance Due Date [...] exists SCREENING FOR DIABETES 04/10/2027 , 04/09/2024, 04/08/2024 [...] (CALCIUM TOTAL) AM Draw 04/10/2024 2:54 AM INCUBATOR OPERATOR Syncope and collapse Hypokalemia from Last 3 Months or Most Recently Relevant to Health Maintenance Results * (ABNORMAL) BASIC METABOLIC PANEL (CALCIUM TOTAL) (04/10/2024 2:54 AM INCUBATOR OPERATOR) BUN 14 7 - 26 mg/dL 04/10/2024 4:44 AM INCUBATOR OPERATOR [facility] Creatinine 0.67(L) 0.71 - 1.16 mg/dL 04/10/2024 4:44 AM [facility] Sodium 133(L) 136 - 145 mmol/L 04/10/2024 4:44 AM [facility] Potassium 3.9 3.5 - 4.5 mmol/L 04/10/2024 4:44 AM [facility] Chloride 101 98 - 107 mmol/L 04/10/2024 4:44 AM [facility] CO2 26 22 - 29 mmol/L 04/10/2024 4:44 AM [facility] Glucose 101(H) 70 - 99 mg/dL 04/10/2024 4:44 AM [facility] Calcium 9.4 8.4 - 10.2 mg/dL 04/10/2024 4:44 AM [facility] Anion Gap 6 6 - 16 04/10/2024 4:44 AM [facility] BUN/Creatinine Ratio 21 7 - 23 04/10/2024 4:44 AM [facility] Osmolality Calculated 277 275 - 295 mOsm/kg 04/10/2024 4:44 AM [facility] eGFR by CKD-EPI >90 >=90 mL/min/1.7 3 m2 04/10/2024 4:44 AM [facility] Blood BLOOD SPECIMEN / Unknown Lab Venipuncture / Unknown 04/10/2024 2:54 AM INCUBATOR OPERATOR 04/10/2024 4:13 AM [facility] Anali Owens MD LAB - CHEMISTRY ORDERABLES Fi nal Result [facility] [address] [place] [address], [facility] [phone] from Last 3 Months or Most Recently Relevant to Health Maintenance Insurance ANTH Advance Directives * Full Code (Latest Code Status on File) Date Activated Date Inactivated Comments 04/08/2024 3:06 PM 04/10/2024 7:14 PM Care Teams Plexiglas Former Relationship Specialty Start Date End Date Markell Ibarra MD [address] [place] [address] PCP - General 09/07/08
--- OUTSIDE RECORDS SUMMARY | 2024-12-18 08:55 | XMS_ITS | Clinical Summary ---
Author Organization [facility] Address [facility] [place] [address] Care Team Providers Care X Ray Service Technician Name Role Phone Xiomara Powell MD Primary Care Provider Terence Lagunas MD Unavailable [phone] Allergies No known active allergies Medications [...] and nosebleed. Discussed potential attempts to trial xnur-rut-zicqgal antihistamine. 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 Gender Identity Not on file Sexual Orientation [...] - Tdap) 1975 Hepatitis B Screening 1982 Regular Well Visit/Exam 18-64 04/21/2024 04/21/2023 Prostate Cancer Screening-PSA 06/26/2024 06/26/2022 Depression Screening 12/07/2024 12/08/2023, 12/08/19 24 Covid-19 Vaccine ( season) 2024 02/06/2022, 02/06/2022, 07/15/2020, Additional history exists Influenza Vaccine (#1) 2024 , 02/06/2022, 02/06/2022, [...] Most Recently Relevant to Health Maintenance Insurance [facility] Care Teams X Ray Service Technician Relationship Specialty Start Date End Date Xiomara Powell MD PCP - General Family Medicine 12/08/23 Terence Lagunas MD [address] [place] [address] Consulting Physician Urology 12/08/23
--- OUTSIDE RECORDS SUMMARY | 2024-12-18 08:55 | XMS_ITS | Clinical Summary ---
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
== END 2024-12-18 08:46 | disposition home or self-care (01) ==
LOC: ANHIMG 08:47
PROVIDERS: PCP Family Medicine; Visit Provider Urology
DX: N13.30 Unspecified hydronephrosis (principal)
CPT/HCPCS: 78708; A9562; J1938

== ENCOUNTER 2025-03-06 08:02 | Outpatient (CLI) | payer BC, SELFPAY ==
--- NOTE | ~2025-03-06 | XR_ITS ---
EXAMINATION: XR foot RT min 3V, 03/06/2025 8:30 BULK PLANT MANAGER HISTORY: pain in right foot COMPARISON: No comparisons available. Findings: No acute fracture or malalignment. No significant degenerative changes. Soft tissues unremarkable. Impression: No acute fracture or malalignment. Reviewed, dictated and finalized at location P. PLANT MANAGER Impression: No acute fracture or malalignment.
--- OUTSIDE RECORDS SUMMARY | 2025-03-06 08:08 | XMS_ITS | Clinical Summary ---
Author Organization [employer] [facility] Address [address] [place] [address] Care Team Providers Care Program Management Professional Name Role Phone Markell Ibarra MD Primary Care Provider [phone] Source Comments [email or web address],non-owned Affiliates and Associated Physician Practices is amultiple site organization consisting of ambulatory clinics and hospital sitesin [place], [place], [place] and [place]. This disclosure is being madepursuant to the Care Everywhere program and may not contain all information available regarding this patient. 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 Gender Identity Not on file Sexual Orientation Not on file Last Filed Vital Signs Vital Sign Reading Time Taken Comments Blood Pressure 126/88 04/18/2024 10:40 AM AIRCRAFT MAINTENANCE MANAGER Pulse 76 04/18/2024 10:40 AM AIRCRAFT MAINTENANCE MANAGER Temperature 36.6 C (97.8 F) 04/18/2024 10:40 AM AIRCRAFT MAINTENANCE MANAGER Respiratory Rate 18 04/18/2024 10:40 AM AIRCRAFT MAINTENANCE MANAGER Oxygen Saturation 96% 04/18/2024 10:40 AM AIRCRAFT MAINTENANCE MANAGER Inhaled Oxygen Concentration - - Weight 77 kg (169 lb 11.2 oz) 04/18/2024 10:40 A M AIRCRAFT MAINTENANCE MANAGER Height 175.3 cm (5' 9) 04/18/2024 10:40 AM AIRCRAFT MAINTENANCE MANAGER Body Mass Index 25.06 04/18/2024 10:40 AM AIRCRAFT MAINTENANCE MANAGER Plan of Treatment Health Maintenance Due Date [...] 50+ (1 of 2 - PCV) 1983 Respiratory Syncytial Virus (RSV) Vaccine Pt: or over 60 yrs (1 - Risk 50-74 years 1-dose series) 2014 ZOSTER VACCINE (1 of 2) 2014 DEPRESSION SCREENING 04/12/2024 COVID-19 VACCINE (6 - season) 2024 01/02/2024, 02/06/2022, 02/06/2022, Additional history exists INFLUENZA VACCINE (#1) 2024 4, 01/17/2023, 02/06/2022, Additional history exists SCREENING FOR DIABETES 04/10/2027 4, 04/09/2024, 04/08/2024 DTAP/TDAP/TD VACCINES (2 - Td or Tdap) 04/08/2034 04/08/2024 HEPATITIS B VACCINE Aged Out No longe [...] (CALCIUM TOTAL) AM Draw 04/10/2024 2:54 AM AIRCRAFT MAINTENANCE MANAGER Syncope and collapse Hypokalemia from Last 3 Months or Most Recently Relevant to Health Maintenance Results * (ABNORMAL) BASIC METABOLIC PANEL (CALCIUM TOTAL) (04/10/2024 2:54 AM AIRCRAFT MAINTENANCE MANAGER) BUN 14 7 - 26 mg/dL 04/10/2024 4:44 AM AIRCRAFT MAINTENANCE MANAGER [facility] Creatinine 0.67(L) 0.71 - 1.16 mg/dL 04/10/2024 4:44 AM AIRCRAFT MAINTENANCE MANAGER [facility] Sodium 133(L) 136 - 145 mmol/L 04/10/2024 4:44 AM [facility] Potassium 3.9 3.5 - 4.5 mmol/L 04/10/2024 4:44 AM [facility] Chloride 101 98 - 107 mmol/L 04/10/2024 4:44 AM [facility] CO2 26 22 - 29 mmol/L 04/10/2024 4:44 AM [facility] Glucose 101(H) 70 - 99 mg/dL 04/10/2024 4:44 AM [facility] Calcium 9.4 8.4 - 10.2 mg/dL 04/10/2024 4:44 AM [facility] Anion Gap 6 6 - 16 04/10/2024 4:44 AM [facility] BUN/Creatinine Ratio 21 7 - 23 04/10/2024 4:44 AM [facility] Osmolality Calculated 277 275 - 295 mOsm/kg 04/10/2024 4:44 AM [facility] eGFR by CKD-EPI >90 >=90 mL/min/1.7 3 m2 04/10/2024 4:44 AM [facility] Blood BLOOD SPECIMEN / Unknown Lab Venipuncture / Unknown 04/10/2024 2:54 AM [facility] 04/10/2024 4:13 AM [facility] Anali Owens MD LAB - CHEMISTRY ORDERABLES Fi nal Result [facility] [address] [place] [address], [facility] [phone] from Last 3 Months or Most Recently Relevant to Health Maintenance Insurance ANTH Advance Directives * Full Code (Latest Code Status on File) Date Activated Date Inactivated Comments 04/08/2024 3:06 PM 04/10/2024 7:14 PM Care Teams Program Management Professional Relationship Specialty Start Date End Date Markell Ibarra MD [address] [place] [address] PCP - General 09/07/08
--- OUTSIDE RECORDS SUMMARY | 2025-03-06 08:08 | XMS_ITS | Clinical Summary ---
Author Organization [facility] Address [address] [place] [address] Care Team Providers Care Auto Air Conditioning Installer Name Role Phone Unavailable Primary Care Provider [...] - PCV) 2014 COVID-19 Vaccine ( - season) 2024 02/06/2022, 07/15/2020, 06/26/2020 Influenza Adult (#1) 2025 01/17/2023, 02/06/2022, 01/31/2020, Additional history exists DTaP, Tdap and Td Vaccines (2 - Td or Tdap) 04/08/2034 04/08/2024 RSV Immunization or 60+ Years (1 - 1-dose 75+ series) 2039 Zoster Vaccines Completed 09/18/2022, 07/13/2022 Hepatitis A Vaccines Aged Out No long er eligible based on patient's age to complete this topic Meningococcal B Vaccine Aged Out No l onger eligible based on patient's age to complete this topic Meningococcal Vaccine Aged Out No elif lisa eligible based on patient's age to complete this topic RSV Immunizations Under 20 Months Aged Out No longer eligible based on patient's age to complete this topic
--- OUTSIDE RECORDS SUMMARY | 2025-03-06 08:09 | XMS_ITS | Clinical Summary ---
Author Organization [facility] Address [facility] [place] [address] Care Team Providers Care Material Handling Crew Supervisor Name Role Phone Xiomara Powell MD Primary Care Provider Terence Lagunas MD Unavailable [phone] Allergies No known active allergies Medications [...] and nosebleed. Discussed potential attempts to trial [id number]-[id number] antihistamine. 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
--- OUTSIDE RECORDS SUMMARY | 2025-03-06 08:09 | XMS_ITS | Clinical Summary ---
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
[2025-03-06 09:01] LABS: Hematocrit 48.3 % (42.0-52.0); Hemoglobin 15.8 g/dL (14.0-18.0); Immature Granulocyte Percent A 0.2 % (0-0.5); Lymphocytes Absolute Auto 1.95 K/mm3 (0.9-3.2); Mean Corpuscular HGB Conc 32.7 g/dl (32-36); Mean Corpuscular Hemoglobin 31.5 pg (26-34); Mean Corpuscular Volume 96.2 fl (80-100); Nucleated Red Blood Cells Absolute Auto 0.000 K/mm3 (0.0-0.012); Nucleated Red Blood Cells Perc 0.0 % (0.0-0.2); Platelet Count Result 214 k/mm3 (150-375); Red Blood Count 5.02 M/mm3 (4.6-6.20); White Blood Count 6.1 K/mm3 (4.5-10.0)
[2025-03-06 09:03] LABS: Add Urine Microscopic? NO; Appearance Urine Clear (Clear); Glucose Urine UA Negative (Negative); Leukocyte Esterase Ur Negative LEU/UL (Negative); Nitrate Urine Negative (Negative); Specific Grav Ur 1.019 (1.001-1.035)
[2025-03-06 09:23] LABS: Alanine Aminotransferase 71 U/L (6-50); Albumin Level 4.6 g/dL (3.5-5.1); Alkaline Phosphatase 54 U/L (38-126); Anion Gap 6 mmol/L (4-12); Aspartate Amino Transferase 46 U/L (17-59); Bilirubin,Total 0.9 mg/dL (0.2-1.3); Blood Urea Nitrogen 20 mg/dL (9-20); Calcium 9.9 mg/dL (8.4-10.2); Carbon Dioxide 27 mmol/L (22-30); Chloride 106 mmol/L (98-107); Cholesterol 178 mg/dL (0-200); Estimated Glomerular Filt Rate > 60; Glucose 89 mg/dL (65-110); HDL Direct 69 mg/dL; Potassium 4.1 mmol/L (3.4-5.0); Sodium 139 mmol/L (137-145); Total Protein 7.6 g/dL (6.3-8.2); Triglycerides 97 mg/dL (<150); Uric Acid 4.9 mg/dL (3.5-8.5)
[2025-03-06 09:24] LABS: Hemoglobin A1C 5.7 % (<5.7)
[2025-03-06 09:51] LABS: Thyroid Stimulating Hormone Reflex 0.713 uIU/mL (0.465-4.68)
[2025-03-06 10:00] LABS: Prostate Specific Antigen 1.0 ng/mL (< OR = 4.0)
[2025-03-06 10:36] LABS: Vitamin B12 > 1000.0 pg/mL (239-931)
== END 2025-03-06 08:03 | disposition home or self-care (01) ==
PROVIDERS: PCP Family Medicine; Referring Provider Podiatrist Foot & Ankle Surgery; Visit Provider Family Medicine
DX: Z00.00 Encounter for general adult medical examination without abnormal findings (principal); M79.671 Pain in right foot; M25.511 Pain in right shoulder; G89.29 Other chronic pain; Z13.1 Encounter for screening for diabetes mellitus
CPT/HCPCS: 36415; 73630; 80053; 80061; 81003; 82306; 82607; 82746; 83036; 84153; 84443; 84550; 85025

== ENCOUNTER 2025-03-30 13:56 | Outpatient (CLI) | payer BC, SELFPAY ==
--- NOTE | ~2025-03-30 | CT_ITS ---
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 Technique: Axial images obtained of the brain without contrast. One or more of the following dose reduction techniques were used: automated exposure control, adjustment of the mA and/or kV according to patient size, use of iterative reconstruction technique. Findings: No acute infarct or parenchymal hemorrhage. No abnormal mass or mass effect. No midline shift. No extra-axial fluid collections. No hydrocephalus. Mastoid air cells unremarkable. Sinuses and orbits unremarkable. No acute fracture. No significant facial or scalp soft tissue swelling evident. No radiopaque foreign body is seen. Impression: 1.No acute intracranial abnormality. Reviewed, dictated and finalized at location P. ILE ENGRAVER Impression: 1.No acute intracranial abnormality.
--- OUTSIDE RECORDS SUMMARY | 2025-03-30 14:02 | XMS_ITS | Clinical Summary ---
Author Organization [facility] Address [facility] [place] [address] Care Team Providers Care Steel Chipper Name Role Phone Xiomara Powell MD Primary Care Provider Terence Lagunas MD Unavailable [phone] Allergies No known active allergies Medications [...] and nosebleed. Discussed potential attempts to trial [id number]-[id number] antihistamine. 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 [facility] Care Teams Steel Chipper Relationship Specialty Start Date End Date Xiomara Powell MD PCP - General Family Medicine 12/08/23 Terence Lagunas MD [address] [facility] [[email or web address] [address] [place] [phone] Consulting Physician Urology 12/08/23
--- OUTSIDE RECORDS SUMMARY | 2025-03-30 14:02 | XMS_ITS | Clinical Summary ---
Author Organization [facility] Address [address] [place] [address] Care Team Providers Care Disability Case Manager Name Role Phone Unavailable Primary Care Provider [...]
--- OUTSIDE RECORDS SUMMARY | 2025-03-30 14:02 | XMS_ITS | Clinical Summary ---
Author Organization [employer] Address [address] [address] Care Team Providers Care Front End Manager Name Role Phone Markell Ibarra MD Primary Care Provider [phone] Source Comments [facility],non-owned Affiliates and Associated Physician Practices is amultiple site organization consisting of ambulatory clinics and hospital sitesin [place], [place], [place] and [place]. This disclosure is being madepursuant to the Care Everywhere program and may not contain all information available regarding this patient. Last updated 17.[facility] Allergies No known active allergies Medications * [...] D-Hyaluron Acd (Libertad Glucosamine Plus Vit D3) 6548-2684-1.65 MG-UNIT-MG TABS Take 2 tablets by mouth [...] on file Legal Sex Male 6:34 AM DISTILLATION OPERATOR Gender Identity Not on file Sexual Orientation Not on file Last Filed Vital Signs Vital Sign Reading Time Taken Comments Blood Pressure 126/88 04/18/2024 10:40 AM DISTILLATION OPERATOR Pulse 76 04/18/2024 10:40 AM DISTILLATION OPERATOR Temperature 36.6 C (97.8 F) 04/18/2024 10:40 AM DISTILLATION OPERATOR Respiratory Rate 18 04/18/2024 10:40 AM DISTILLATION OPERATOR Oxygen Saturation 96% 04/18/2024 10:40 AM DISTILLATION OPERATOR Inhaled Oxygen Concentration - - Weight 77 kg (169 lb 11.2 oz) 04/18/2024 10:40 A M DISTILLATION OPERATOR Height 175.3 cm (5' 9) 04/18/2024 10:40 AM DISTILLATION OPERATOR Body Mass Index 25.06 04/18/2024 10:40 AM DISTILLATION OPERATOR Plan of Treatment Health Maintenance Due [...] (CALCIUM TOTAL) AM Draw 04/10/2024 2:54 AM DISTILLATION OPERATOR Syncope and collapse Hypokalemia from Last 3 Months or Most Recently Relevant to Health Maintenance Results * (ABNORMAL) BASIC METABOLIC PANEL (CALCIUM TOTAL) (04/10/2024 2:54 AM DISTILLATION OPERATOR) BUN 14 7 - 26 mg/dL 04/10/2024 4:44 AM DISTILLATION OPERATOR [facility] Creatinine 0.67(L) 0.71 - 1.16 mg/dL 04/10/2024 4:44 AM DISTILLATION OPERATOR [facility] Sodium 133(L) 136 - 145 mmol/L 04/10/2024 4:44 AM [facility] Potassium 3.9 3.5 - 4.5 mmol/L 04/10/2024 4:44 AM [facility] Chloride 101 98 - 107 mmol/L 04/10/2024 4:44 AM [facility] CO2 26 22 - 29 mmol/L 04/10/2024 4:44 AM [facility] Glucose 101(H) 70 - 99 mg/dL 04/10/2024 4:44 AM [facility] Calcium 9.4 8.4 - 10.2 mg/dL 04/10/2024 4:44 AM [facility] Anion Gap 6 6 - 16 04/10/2024 4:44 AM [facility] BUN/Creatinine Ratio 21 7 - 23 04/10/2024 4:44 AM [facility] Osmolality Calculated 277 275 - 295 mOsm/kg 04/10/2024 4:44 AM [facility] eGFR by CKD-EPI >90 >=90 mL/min/1.7 3 m2 04/10/2024 4:44 AM [facility] Blood BLOOD SPECIMEN / Unknown Lab Venipuncture / Unknown 04/10/2024 2:54 AM [facility] [email or web address]] 04/10/2024 4:13 AM [facility] [[email or web address]] Anali Owens MD LAB - CHEMISTRY ORDERABLES Fi nal Result [facility] [address] [place] [address], [facility] [phone] from Last 3 Months or Most Recently Relevant to Health Maintenance Insurance [employer] Advance Directives * Full Code (Latest Code Status on File) Date Activated Date Inactivated Comments 04/08/2024 3:06 PM 04/10/2024 7:14 PM Care Teams Front End Manager Relationship Specialty Start Date End Date Markell Ibarra MD [address] [place] [address] PCP - General 09/07/08
--- OUTSIDE RECORDS SUMMARY | 2025-03-30 14:02 | XMS_ITS | Clinical Summary ---
Author Organization [facility] Care Team Providers Care Tape Controlled Machine Stitcher Name Role Phone Unavailable Primary Care Provider Unavailabl e Social History Tobacco Use Types Packs/Day Years Used Date Smoking Tobacco: Never Assessed Sex and Gender Information Value Date Recorded Sex Assigned at Not on file Legal Sex Male 8:59 AM WIRE HANGER Gender Identity Not on file Sexual Orientation [...] Influenza Immunization (#1) 12/11/202401/10, 01/30/2017 SARS-COV-2 Immunization (1 - season) 2024 Respiratory Syncytial Virus (RSV) [...]
== END 2025-03-30 13:57 | disposition home or self-care (01) ==
PROVIDERS: PCP Family Medicine; Visit Provider Internal Medicine Cardiovascular Disease
DX: G45.9 Transient cerebral ischemic attack, unspecified (principal)
CPT/HCPCS: 70450

== ENCOUNTER 2025-04-11 07:20 | Outpatient (CLI) | payer BC, SELFPAY ==
--- OUTSIDE RECORDS SUMMARY | 2025-04-11 07:23 | XMS_ITS | Clinical Summary ---
Author Organization [facility] Address [address] [place] [address] Care Team Providers Care Polystyrene Bead Molder Name Role Phone Unavailable Primary Care Provider [...]
--- OUTSIDE RECORDS SUMMARY | 2025-04-11 07:23 | XMS_ITS | Clinical Summary ---
Author Organization [facility] Care Team Providers Care Classified Ad Taker Name Role Phone Unavailable Primary Care Provider Unavailabl e Social History Tobacco Use Types Packs/Day Years Used Date Smoking Tobacco: Never Assessed Sex and Gender Information Value Date Recorded Sex Assigned at Not on file Legal Sex Male 8:59 AM MANAGER TRANSPORTATION Gender Identity Not on file Sexual Orientation [...]
--- OUTSIDE RECORDS SUMMARY | 2025-04-11 07:23 | XMS_ITS | Clinical Summary ---
Author Organization [facility] [address] [place] [address] [address] [facility] [place] [address] Care Team Providers Care Paid Search Analyst Name Role Phone Xiomara Powell MD Primary Care Provider Terence Lagunas MD Unavailable [phone] Allergies No known active allergies Medications [...] and nosebleed. Discussed potential attempts to trial [id number] antihistamine. 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
[2025-04-11 08:04] LABS: Alanine Aminotransferase 50 U/L (6-50); Albumin Level 4.5 g/dL (3.5-5.1); Alkaline Phosphatase 58 U/L (38-126); Aspartate Amino Transferase 45 U/L (17-59); Bilirubin,Total 0.9 mg/dL (0.2-1.3); Total Protein 7.5 g/dL (6.3-8.2)
[2025-04-11 09:52] LABS: Hepatitis B Surface Antigen Negative (Negative)
[2025-04-11 09:58] LABS: HAV RESULT Negative (Negative); Hepatitis B Core IgM Result Negative (Negative)
== END 2025-04-11 07:21 | disposition home or self-care (01) ==
LOC: ANHLAB 07:21
PROVIDERS: PCP Family Medicine; Visit Provider Family Medicine
DX: R74.8 Abnormal levels of other serum enzymes (principal)
CPT/HCPCS: 36415; 80074; 80076

== ENCOUNTER 2025-04-11 07:40 | Outpatient (CLI) | payer BC, SELFPAY ==
--- NOTE | ~2025-04-11 | US_ITS ---
US abdomen complete EXAMINATION: US Abdomen Complete INDICATION: Elevated liver enzymes PROCEDURE: Realtime High Resolution abdomen ultrasound. COMPARISON: No prior studies for comparison FINDINGS: Gallbladder within normal limits. No gallstones, pericholecystic fluid, gallbladder wall thickening or biliary dilatation. Common bile duct measures 3 mm. Liver echotexture within normal limits without focal mass. Pancreas within normal limits. Pancreatic tail is obscured by bowel gas. Spleen is unremarkeable. There is a right renal cyst measuring 7 mm. There is a 7 mm echogenic focus with posterior shadowing in the left kidney, consistent with renal stone. Mild left hydronephrosis. Right kidney measures 12.8 cm. Left kidney measures 12.7 cm. Visualized aspects of the aorta and IVC are within normal limits. Portal vein is patent. No sonographic Jackson's sign indicated by the technologist. IMPRESSION: 1: Echogenic focus of the left kidney measuring 7 mm with mild hydronephrosis, likely renal stone. Reviewed, dictated and finalized at location O. NET ASSEMBLER
== END 2025-04-11 07:41 | disposition home or self-care (01) ==
LOC: MICIMG 07:41
PROVIDERS: PCP Family Medicine; Visit Provider Family Medicine
DX: R74.8 Abnormal levels of other serum enzymes (principal)
CPT/HCPCS: 76700